=== PATIENT | male | born 1970 | race Caucasian/White ===

== ENCOUNTER 2020-02-06 16:43 | Observation (INO) | payer BC, SELFPAY ==
--- NOTE | ~2020-02-06 | XR_ITS ---
EXAMINATION: XR chest 2V EXAM DATE: 02/06/2020 18:04 INDICATION: Chest pain. History of asthma. Shortness of breath. TECHNIQUE: Frontal and lateral projections of the chest obtained and reviewed. Comparison is made to prior examination from 06/17/2016. FINDINGS: The lungs are clear. There are no pleural effusions. The cardiomediastinal silhouette is within normal limits. There is no pneumothorax suspected. The bones and soft tissues are unremarkab le. IMPRESSION: No acute cardiopulmonary findings. Reviewed, dictated and finalized at location A.
--- NOTE | 2020-02-06 16:44 | ECG_ITS ---
Measurements Intervals [place] Rate: 75 P: 44 NE: 179 QRS: 9 QRSD: 99 T: 46 QT: 366 QTc: 411 Interpretive Statements SINUS RHYTHM NORMAL ECG Electronically Signed On 02-07-2020 6:54:04 CDT by Herberth Gutiérrez D.O.
[2020-02-06 16:45] VITALS: BP 180/89; PULSE 73; RESP 17; TEMP 36.4; O2SAT 97
[2020-02-06 16:56] VITALS: PULSE 86
[2020-02-06 17:05] LABS: Basophils Absolute Auto 0.1 K/mm3 (0.0-0.1); Basophils Percent Auto 0.7 % (0.2-1.2); Eosinophils Absolute Auto 0.3 K/mm3 (0-0.3); Eosinophils Percent Auto 2.9 % (0-4.4); Hemoglobin 14.1 g/dL (14.0-18.0); Immature Granulocyte Absolute 0.05 K/mm3 (0.00-0.031); Immature Granulocyte Percent A 0.6 % (0-0.5); Lymphocytes Absolute Auto 3.02 K/mm3 (0.9-3.2); Lymphocytes Percent Auto 34.4 % (18.3-44.2); Mean Corpuscular HGB Conc 34.4 g/dl (32-36); Mean Corpuscular Hemoglobin 29.7 pg (26-34); Mean Corpuscular Volume 86.5 fl (80-100); Mean Platelet Volume 9.2 fl (7.4-10.4); Monocytes Absolute Auto 0.4 K/mm3 (0.1-0.6); Monocytes Percent Auto 4.8 % (2.6-8.5); Neutrophils Percent Auto 56.6 % (45.5-73.1); Platelet Count Result 297 k/mm3 (150-375); Red Blood Count 4.74 M/mm3 (4.6-6.20); Red Cell Distribution Width 13.2 % (11.5-14.5); White Blood Count 8.8 K/mm3 (4.5-10.0)
[2020-02-06] MEDS: ASPIRIN 81 MG CHEWABLE TABLET 324 MG PO (17:07)
[2020-02-06 17:16] LABS: Prothrombin Time 12.7 Seconds (11.1-14.7)
[2020-02-06 17:17] LABS: Blood Urea Nitrogen 11 mg/dL (9-20); Calcium 8.8 mg/dL (8.4-10.2); Carbon Dioxide 26 mmol/L (22-30); Chloride 106 mmol/L (98-107); Estimated CRCL calculation 121 ml/min; Estimated Glomerular Filt Rate > 60; Glucose 125 mg/dL (75-110); Partial Thromboplastin Time 29.2 SECONDS (22.3-36.8); Potassium 3.7 mmol/L (3.4-5.0); Sodium 140 mmol/L (137-145)
[2020-02-06 17:29] LABS: Troponin I < 0.012 ng/mL (0.000-0.034)
--- NOTE | 2020-02-06 17:40 | ED.CHESTPAIN ---
HPI - Chest Pain General Chief Complaint: Chest Pain Stated Complaint: CP AND SOB Time Seen by Provider: 02/06/20 17:11 Source: patient and family History of Present Illness HPI narrative: Patient is 49 years old white male, obese presents with headache, dizziness, shortness of breath on exertion and chest pain started 3 weeks ago. Patient used to be on blood pressure medication but stopped years ago. History of asthma, does not smoke and drinks occasionally. Patient works 10 hours a day, 6 days a week. For people of his relatives move the Adriano's house on the last few weeks. Patient reports a lot of stress lately. Currently patient IS asymptomatic. Patient denies any fever, chills, sore throat, runny nose, body aches. Patient denies exposure to COVID-19. MD complaint: chest pain Related Data Home Medications Medication Instructions Recorded Confirmed No Home Medications 02/06/20 02/06/20 Allergies Allergy/AdvReac Type Severity Reaction Status Date / Time No Known Allergies Allergy Mild Verified 02/06/20 16:53 Review of Systems Review of Systems: Narrative: CONSTITUTIONAL: Denies fever, chills, or sweats. EYES: Denies visual changes, redness, or discharge. ENT: Denies rhinorrhea, congestion, sore throat, or otalgia. CARDIOVASCULAR: Denies chest pain, palpitations, or edema. RESPIRATORY: Denies cough or dyspnea. GASTROINTESTINAL: Denies abdominal pain, nausea, vomiting, or diarrhea. GENITOURINARY: Denies dysuria or hematuria. SKIN: Denies rash or itching. MUSCULOSKELETAL: Denies back pain, joint pain, or myalgia. NEUROLOGIC: Denies headache, numbness, or weakness. PSYCHIATRIC: Denies anxiety or depression. PMFSH Social History Social History Gender identity (if verbalized by the patient): Male Exam Narrative: Exam Narrative: General appearance: Well-developed, well-nourished Skin: Normal color Head: Normocephalic, nontraumatic Eyes: Clear conjunctiva ENT: Oropharynx normal, ears normal, nose normal Neck: Supple, nontender Chest and respiratory: Airway patent, no respiratory distress, no accessory muscle use Heart: Regular rate/rhythm Abdomen: Soft, nontender, no organomegaly, quiet bowel sounds Vascular: Normal peripheral pulses, normal capillary refill. Musculoskeletal: Normal range of motion, nontender back Neurologic: Alert and oriented ?3, EMERGENCY MEDICAL DISPATCHER is normal as tested, no gross motor deficit Course Course Emergency Course: Asymptomatic, unchanged Consultations Consultation #1: Dr. Oscar: Admit to chest pain center Date: 02/06/20 Time: 19:10 Vital Signs Vital signs: Vital Signs Temperature 36.4 C L 02/06/20 16:45 Pulse Rate 73 02/06/20 16:45 Respiratory Rate 17 02/06/20 16:45 Blood Pressure 180/89 H 02/06/20 16:45 Pulse Oximetry 97 02/06/20 16:45 Temperature 36.4 C L 02/06/20 16:45 Pulse Rate 86 02/06/20 16:56 Respiratory Rate 17 02/06/20 16:45 Blood Pressure 180/89 H 02/06/20 16:45 Pulse Oximetry 97 02/06/20 16:45 MDM - Chest Pain MDM Narrative Medical decision making narrative: Patient does have risk factor for coronary artery disease, my concern is stress related symptoms versus coronary artery disease symptoms. I plan to get labs, EKG, chest x-ray. Further plan to follow Differential Diagnosis Differential diagnosis: Likely stable angina, atypical chest pain and chest pain Lab Data Result diagrams: 02/06/20 17:00 02/06/20 17:00 Labs: Lab Results 02/06/20 02/06/20 02/06/20 Range/Units 17:00 17:00 17:00 WBC 8.8 (4.5-10.0) K/mm3 RBC 4.74 (4.6-6.20) M/mm3 Hgb 14.1 (14.0-18.0
[2020-02-06 19:07] VITALS: PULSE 73
[2020-02-06] MEDS: METOPROLOL TARTRATE 50 MG TAB 25 MG PO (19:07)
[2020-02-06] MEDS: ENOXAPARIN 100 MG/ML SYRINGE SUB-Q (19:30)
[2020-02-06 20:00] VITALS: BP 152/89; PULSE 67; RESP 18; TEMP 36.9; O2SAT 99
[2020-02-06 20:10] VITALS: BMI 39.8
--- NOTE | 2020-02-06 20:10 | ADMGEN ---
This patient, Дмитрий Trejo, was admitted to [facility] Patient/family oriented to hospital policies and general routines including ID bracelet, bed and alarms, visiting hours, pain management, procedures, bathroom and other care routines, personal items, smoking policy, room service/diet, and visiting hours. Valuables list has been completed. Information on how to activate the Rapid Response Team has been discussed. Patient/Family are encouraged to report perceived risks to care and to ask questions if they do not understand what they are told or what they should do.
[2020-02-06 21:39] LABS: Troponin I < 0.012 ng/mL (0.000-0.034)
[2020-02-06 22:00] VITALS: PULSE 67
[2020-02-06 22:18] VITALS: PULSE 67; RESP 18; O2SAT 99
[2020-02-06 23:46] LABS: Troponin I < 0.012 ng/mL (0.000-0.034)
[2020-02-07] VITALS (8 sets, daily range): BP systolic 121–133; BP diastolic 62–78; PULSE 57–112; RESP 14–18; TEMP 36.6–37; O2SAT 98–99
--- NOTE | 2020-02-07 | EST_ITS ---
Patient Info Name: Дмитрий Trejo Age: 49 years : 1970 Gender: Male Ht: 64 in Wt: 232 lbs BSA: 2.23 m2 Exam Date: 02/07/2020 9:40 AM [facility] Patient Status: Inpatient Admit Date: 02/06/2020 Staff Ordering Physician: Grady Monteiro MD Aeronautical Engineering Officer: Jose Manuel Gomez RDCS Attending Provider: ZAIRA JONES Referring Physician: Thania SUNG; Exercise Technologist: Bhavya Ham RDCS Nurse: Zaira Mendoza, [facility] Exam Type: CA stress echo Study Info Indications R07.89 - Other chest pain Treadmill exercise stress echocardiogram is performed. Summary 1. Normal augmentation of all wall segments without evidence of ischemia with stress. 2. Normal left venticular systolic function with no regional wall motion abnormalities noted at rest. 3. Normal sinus rhythm - normal ECG. 4. No abnormal ST/T wave changes with exercise. 5. Negative stress echo at 86 % APMHR. Stress Echo Findings Left Ventricle Normal left venticular systolic function with no regional wall motion abnormalities noted at rest. Normal augmentation of all wall segments without evidence of ischemia with stress. Protocol: Petr Stress ECG Details Stage: REST Duration (min): 0 min : 53 sec Speed (mph): 0.0 Grade (%): 0 HR (bpm): 61 SBP (mmHg): 123 DBP (mmHg): 67 METS: --- Stage: REST Duration (min): 3 min : 59 sec Speed (mph): 0.0 Grade (%): 0 HR (bpm): 51 SBP (mmHg): 123 DBP (mmHg): 67 METS: --- Stage: REST Duration (min): 11 min : 49 sec Speed (mph): 0.0 Grade (%): 0 HR (bpm): 74 SBP (mmHg): 123 DBP (mmHg): 67 METS: --- Stage: STAGE 1 Duration (min): 1 min : 0 sec Speed (mph): 1.7 Grade (%): 10 HR (bpm): 90 SBP (mmHg): 123 DBP (mmHg): 67 METS: --- Stage: STAGE 1 Duration (min): 2 min : 0 sec Speed (mph): 1.7 Grade (%): 10 HR (bpm): 100 SBP (mmHg): 123 DBP (mmHg): 67 METS: --- Stage: STAGE 1 Duration (min): 3 min : 0 sec Speed (mph): 1.7 Grade (%): 10 HR (bpm): 102 SBP (mmHg): 143 DBP (mmHg): 67 METS: --- Stage: STAGE 2 Duration (min): 1 min : 0 sec Speed (mph): 2.5 Grade (%): 12 HR (bpm): 110 SBP (mmHg): 143 DBP (mmHg): 67 METS: --- Stage: STAGE 2 Duration (min): 2 min : 0 sec Speed (mph): 2.5 Grade (%): 12 HR (bpm): 115 SBP (mmHg): 162 DBP (mmHg): 69 METS: --- Stage: STAGE 2 Duration (min): 3 min : 0 sec Speed (mph): 2.5 Grade (%): 12 HR (bpm): 121 SBP (mmHg): 162 DBP (mmHg): 69 METS: --- Stage: STAGE 3 Duration (min): 1 min : 0 sec Speed (mph): 3.4 Grade (%): 14 HR (bpm): 135 SBP (mmHg): 195 DBP (mmHg): 91 METS: --- Stage: STAGE 3 Duration (min): 1 min : 35 sec Speed (mph): 3.4 Grade (%): 14 HR (bpm): 148 SBP (mmHg): 195 DBP (mmHg): 91 METS: ---
--- NOTE | 2020-02-07 06:00 | ECG_ITS ---
Measurements Intervals [place] Rate: 60 P: 51 MD: 193 QRS: 0 QRSD: 98 T: 46 QT: 397 QTc: 397 Interpretive Statements SINUS RHYTHM NORMAL ECG Electronically Signed On 02-07-2020 11:38:17 CDT by Herberth Gutiérrez D.O.
[2020-02-07] MEDS: ACETAMINOPHEN 500 MG TABLET 1000 MG PO ×2 (06:59→13:36)
[2020-02-07] MEDS: ASPIRIN 81 MG CHEWABLE TABLET PO (08:28)
--- NOTE | 2020-02-07 09:24 | PM.IMHP ---
H&P: HPI History of Present Illness Chief complaint: CP, Anxiety Narrative: Дмитрий Trejo is a 49 year old male without previous history of known heart disease who presents with a history of chest pain after being seen in the emergency room last evening. The patient says that he has been having intermittent episodes of odd since shins and is the described 3 or 4 weeks ago. The symptoms were nonexertional and not associated with any other symptomatology. He was not particularly concerned about any of this until the last week or so when he started also have some chest pain. He describes episodes of a dull central chest pain which is sometimes left to the precordium. This a call so occurs in a unpredictable fashion in the sense that it occurs both with and without exertion. He has had a couple of episodes that occurred with stair climbing and another episode with carrying a bag of dog food from his car into the house. Because of these symptoms he came to the emergency room last evening. His 12 lead ECG looks relatively benign his biomarkers are normal x3 sets. He is comfortable in room 211 and has no other symptoms or complaints. Past medical history is remarkable for a previous history of hernia surgery. Otherwise he denies symptoms of palpitations syncope orthopnea PND or edema. 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 Review of Systems Constitutional: Constitutional: Reports no additional constitutional complaints Eyes: Eyes: Reports no additional eye complaints ENT: Reports system reviewed and no additional complaints, except as documented Cardiovascular: Cardiovascular: Reports as per HPI Respiratory: Respiratory: Reports as per HPI Gastrointestinal: Gastrointestinal: Reports no additional gastrointestinal complaints Genitourinary: Genitourinary: Reports no additional male genitourinary complaints Musculoskeletal: Musculoskeletal: Reports no additional musculoskeletal complaints Integumentary/Breasts: Skin/Breast: Reports system reviewed and no additional complaints, except as docu Neurologic: Reports system reviewed and no additional complaints, except as documented Psychiatric: Psychiatric: Reports no additional psychiatric complaints [facility] Social History Social History Smoking status: Former smoker Alcohol intake: current Drinks per week: 6 Gender identity (if verbalized by the patient): Male Spiritual care concerns: No Meds Home Medications and Allergies Home Medications Medication Instructions Recorded Confirmed Type albuterol sulfate 2 puff INHALATION QID PRN 02/06/20 02/06/20 History Allergies Allergy/AdvReac Type Severity Reaction Status Date / Time No Known Allergies Allergy Mild Verified 02/06/20 16:53 Vital Signs Vital Signs - 24 hr 02/06/20 16:45 02/06/20 16:56 02/06/20 19:07 Temperature 36.4 C L Pulse Rate 73 86 73 Respiratory Rate 17 Blood Pressure 180/89 H Pulse Oximetry 97 02/06/20 20:00 02/06/20 22:00 02/06/20 22:18 Temperature 36.9 C Pulse Rate 67 67 67 Respiratory Rate 18 18 Blood Pressure 152/89 H Pulse Oximetry 99 99 02/07/20 00:00 02/07/20 02:00 02/07/20 04:00 Temperature 36.9 C 37.0 C Pulse Rate 64 62 112 H Respiratory Rate 18 18 Blood Pressure 122/70 123/62 Pulse Oximetry 98 99 02/07/20 06:00 02/07/20 08:00 Temperature 36.7 C Pulse Rate 61 62 Respiratory Rate 14 Blood Pressure 121/76 Pulse Oximetry 99 Exam Const: General: comfortable and no acute distress Other: Overweight white male no apparent distress HENMT: Mouth: Yes moist mucous membranes Eyes: Sclera: sclerae normal Pupils: Equal, round and reactive pupils present Neck: Neck: supple and no JVD Thyroid: thyroid normal Resp: Effort & Inspection: normal respiratory effort Auscultation: clear to auscultation bilaterally Cardio: Rate: regular rate Rhythm: regular rhyth
== END 2020-02-07 15:30 | disposition home or self-care (01) ==
LOC: ANHED 19:10 → ANHCPC 19:20 → ANHIMU 20:32
PROVIDERS: Admitting Provider Internal Medicine Cardiovascular Disease; Emergency Provider Emergency Medicine; PCP Internal Medicine Gastroenterology; Visit Provider Internal Medicine Cardiovascular Disease
DX: R07.89 Other chest pain (principal); E66.9 Obesity, unspecified; Z68.39 Body mass index [BMI] 39.0-39.9, adult; Z87.891 Personal history of nicotine dependence
CPT/HCPCS: 36415; 71046; 80048; 84484; 85025; 85610; 85730; 93005; 93351; 96372; 99285; A9270; G0378; J1650

== ENCOUNTER → 2021-07-15 12:01 | Outpatient (CLI) | payer OTHER, SELFPAY ==
--- NOTE | ~2021-07-15 | MR_ITS ---
EXAMINATION: MR pituitary wo/w con EXAM DATE: 07/15/2021 13:18 INDICATION: Abnormal pituitary function tests. Low testosterone, high prolactin. Generalized headache s. Dizziness. TECHNIQUE: Magnetic resonance imaging (MRI) of the brain/pituitary obtained without contrast. Yosefitt al T1, axial diffusion, gradient echo (T2*), T1, T2, FLAIR sequences obtained. Patient was then inje cted with 20 cc intravenous Multihance contrast. Axial and coronal postcontrast T1 weighted sequences obtained. A pituitary protocol was utilized including dynamic imaging through the pituitary gland du ring intravenous injection of contrast. There are no prior studies for comparison. FINDINGS: The pituitary gland is confined to the sella turcica. Suprasellar region normal in appear ance. The optic chiasm normal. Infundibulum is midline. No definite pituitary microadenoma identif ied. Please note small microadenomas can cause endocrine abnormalities but are not always identified by imaging even using dedicated pituitary protocol. This does exclude macroadenoma or need for surg ical management. There are no areas of restricted diffusion to suggest acute infarction. There is no acute hemorrhage seen on the T2*, a hemosiderin sensitive sequence. No intraparenchymal brain mass. The ventricles a re normal in size. There are no extra-axial collections. Flow voids are seen in the cerebral arteri es on the T2-weighted sequences consistent with their expected patency. The orbits are unremarkable. Soft tissue is unremarkable. There are no areas of abnormal enhancement on the postcontrast image s. IMPRESSION: Unremarkable brain/pituitary exam. Reviewed, dictated and finalized at location A.
[2021-07-15 12:35] LABS: Estimated Glomerular Filt Rate > 60
== END ==
PROVIDERS: Visit Provider Internal Medicine Endocrinology, Diabetes & Metabolism
DX: R94.7 Abnormal results of other endocrine function studies (principal)
CPT/HCPCS: 70553; A9577

== ENCOUNTER 2022-08-16 13:20 | Inpatient (IN) | payer OTHER, SELFPAY ==
[2022-08-16] VITALS (25 sets, daily range): BP systolic 144–209; BP diastolic 69–113; PULSE 66–102; RESP 10–24; TEMP 36.6–36.8; O2SAT 90–100; BMI 42.1
--- NOTE | ~2022-08-16 | NM_ITS ---
EXAMINATION: NM ok stress w perfusion DATE: 08/17/2022 13:31 INDICATION: Elevated troponin TECHNIQUE: Rest images were obtained following intravenous administration of 9.7 mCi Tc99m tetrofosmi n (Myoview). The patient was infused intravenously with Lexiscan (Regadenoson). Then, 30.5 mCi Tc99m tetrofosmin (Myoview) was administered intravenously, and stress images were obtained. Data was recon structed into short axis and horizontal and vertical long axis SPECT images. Gated SPECT images were also obtained. COMPARISON: None. FINDINGS: There is no definite reversible or fixed perfusion abnormality to suggest ischemia or infar ction. There is normal left ventricular chamber size, wall motion and ejection fraction. Left ventr icular ejection fraction measures 58%. IMPRESSION: 1. Normal myocardial perfusion at rest and during stress. 2. Left ventricular ejection fraction measuring 58%. Reviewed, dictated and finalized at location A. PATIAL IMAGE ANALYST
--- NOTE | ~2022-08-16 | CT_ITS ---
EXAMINATION: CT brain wo con DATE: 08/16/2022 16:08 INDICATION: headache . TECHNIQUE: Computed tomography (CT) of the head was performed without intravenous contrast. The mA wa s adjusted according to patient size. Iterative reconstruction technique was employed. The dose-lengt h product was 605.33 mGy-cm. COMPARISON: None FINDINGS: No acute intracranial hemorrhage or extra-axial fluid collection. No hydrocephalus, mass, or herniation. No acute ischemic infarct. Unremarkable dural venous sinus attenuation. No acute osseous abnormality. Dependent aerated secretions and fluid in the bilateral maxillary sinuses, the remaining aerated spac es are clear. IMPRESSION: No acute intracranial process. Possible acute bilateral maxillary sinusitis. Reviewed, dictated and finalized at location K. DREN'S ZOO CARETAKER
--- NOTE | ~2022-08-16 | XR_ITS ---
EXAMINATION: XR chest 2V 08/16/2022 14:15 INDICATION: Chest pain PROCEDURE: PA and lateral views of the chest COMPARISON: Comparison to multiple prior studies sequentially, with oldest reviewed study dated 11/02. FINDINGS: The lungs are clear. The cardiomediastinal silhouette is within normal limits. There are no pleural effusions. There is no pneumothorax suspected. IMPRESSION: 1: NO ACUTE CARDIOPULMONARY DISEASE. Reviewed, dictated and finalized at location A. ARY ACQUISITIONS TECHNICIAN
--- NOTE | 2022-08-16 14:05 | ECG_ITS ---
Measurements Intervals [place] Rate: 73 P: 61 NV: 181 QRS: -4 QRSD: 81 T: 67 QT: 319 QTc: 352 Interpretive Statements SINUS RHYTHM WITH SINUS ARRHYTHMIA BASELINE ARTIFACT PRESENT COMPARED TO ECG 02/07/2020 11:13:14 SINUS ARRHYTHMIA NOW PRESENT Electronically Signed On 08-17-2022 11:11:06 FINANCIAL SPECIALIST by Karla Andersen M.D.
--- NOTE | 2022-08-16 14:06 | ED.GENADULT ---
HPI - General Adult General Chief complaint: Recheck/Abnormal Lab/Rx Stated complaint: high bp Time Seen by Provider: 08/16/22 13:36 History of Present Illness HPI narrative: 52-year-old male presenting to the emergency department for evaluation of hypertension. Patient does take hydrochlorothiazide for his hypertension. Patient states that his blood pressure last night was running 190/117. Upon arrival to the emergency department his pressure was improved at 170/86. Patient does state of the last few days he has had increased headache and did have some blurred vision yesterday. Patient states he is also had some intermittent left-sided chest pain that does radiate to his left jaw. Patient reports he did have an issue with hypertension during January 2022 and was admitted for a stress test and cardiac rule out. Patient states he does not want to stay for cardiac rule out at this time. Patient is willing to stay for treatment and a delta troponin. Patient takes hydrochlorothiazide, atorvastatin, albuterol and testosterone. Related Data Home Medications Medication Instructions Recorded Confirmed albuterol sulfate 90 mcg/actuation 2 puff inhalation QID PRN 02/06/20 08/16/22 aerosol inhaler Shortness Of Breath atorvastatin 20 mg tablet 20 mg PO DAILY 08/16/22 08/16/22 hydrochlorothiazide 12.5 mg PO DAILY 08/16/22 08/16/22 testosterone 0.5 ml topical DAILY 08/16/22 08/16/22 Allergies Allergy/AdvReac Type Severity Reaction Status Date / Time No Known Allergies Allergy Mild Verified 02/06/20 16:53 Review of Systems Review of Systems: CONSTITUTIONAL: Denies fever, chills, or sweats. EYES: Denies visual changes, redness, or discharge. ENT: Denies rhinorrhea, congestion, sore throat, or otalgia. CARDIOVASCULAR: See HPI RESPIRATORY: Denies cough or dyspnea. GASTROINTESTINAL: Denies abdominal pain, nausea, vomiting, or diarrhea. GENITOURINARY: Denies dysuria or hematuria. SKIN: Denies rash or itching. MUSCULOSKELETAL: Denies back pain, joint pain, or myalgia. NEUROLOGIC: Reports headache but denies any associated numbness or weakness. [facility] Family History Family History Father Chronic obstructive pulmonary disease Emphysema lung Lung cancer Mother Chronic obstructive pulmonary disease Emphysema lung Social History Social History Smoking status: Never smoker Alcohol intake: current Drinks per week: 6 Substance use: never Lack of Transportation: No Lack of Food: Never True Current Housing: I Have Housing Concerned About Future Housing: No Difficulty Paying Gas/Electric Bills: No Difficulty Paying for Meds: No Currently Unemployed: No Education: Bachelor's Degree Difficulty w/ Childcare or Family Care: No Gender identity (if verbalized by the patient): Male Spiritual care concerns: No Exam Narrative: APPEARANCE: Well appearing, no pain, no distress, well-nourished. HEAD: normocephalic, atraumatic. EYES: PERRLA/EOMI, conjunctivae clear. NOSE: Normal no drainage NECK: Supple. No adenopathy, no masses. RESPIRATORY: Airway patent, respirations nonlabored. Clear to auscultation bilaterally, no rales, rhonchi, wheezing. CARDIOVASCULAR: Regular rate and rhythm without murmurs rubs or gallops. ABDOMINAL: Soft, nontender, nondistended, normal bowel sounds MUSCULOSKELETAL: Moves all extremities. Strength/ROM intact, No edema, No calf tenderness. NEURO: Alert. Cranial nerves II through XII intact. Grossly intact SKIN: Warm, dry. Normal Color Course Course Emergency Course: Initial concern for hypertensive urgency due to the patient having symptoms of headache and left-sided chest pain with his hypertension. Patient's chest symptoms resolved with the nitro although patient does still have a headache. Patient is EKG showed no evidence of acute STEMI. Patient's initial troponin was
[2022-08-16] MEDS: ASPIRIN 81 MG CHEWABLE TABLET 324 MG PO (14:21)
[2022-08-16] MEDS: NITROGLYCERIN SL 0.4 MG TABLET SUBLINGUAL (14:21)
[2022-08-16 14:27] LABS: Basophils Absolute Auto 0.1 K/mm3 (0.0-0.1); Basophils Percent Auto 0.4 % (0.2-1.2); Eosinophils Absolute Auto 0.3 K/mm3 (0-0.3); Eosinophils Percent Auto 2.5 % (0-4.4); Hematocrit 51.7 % (42.0-52.0); Hemoglobin 17.8 g/dL (14.0-18.0); Immature Granulocyte Absolute 0.05 K/mm3 (0.00-0.031); Immature Granulocyte Percent A 0.4 % (0-0.5); Lymphocytes Absolute Auto 3.35 K/mm3 (0.9-3.2); Mean Corpuscular HGB Conc 34.4 g/dl (32-36); Mean Corpuscular Hemoglobin 30.1 pg (26-34); Mean Corpuscular Volume 87.3 fl (80-100); Mean Platelet Volume 9.3 fl (7.4-10.4); Monocytes Absolute Auto 0.9 K/mm3 (0.1-0.6); Monocytes Percent Auto 7.8 % (2.6-8.5); Neutrophils Absolute Auto 6.6 K/mm3 (1.3-6.7); Neutrophils Percent Auto 58.9 % (45.5-73.1); Platelet Count Result 345 k/mm3 (150-375); Red Blood Count 5.92 M/mm3 (4.6-6.20); Red Cell Distribution Width 13.7 % (11.5-14.5); White Blood Count 11.2 K/mm3 (4.5-10.0)
[2022-08-16 14:39] LABS: Alanine Aminotransferase 32 U/L (6-50); Albumin Level 4.8 g/dL (3.5-5.1); Alkaline Phosphatase 51 U/L (38-126); Anion Gap 10 mmol/L (8-16); Aspartate Amino Transferase 31 U/L (17-59); Bilirubin,Total 0.7 mg/dL (0.2-1.3); Blood Urea Nitrogen 15 mg/dL (9-20); Calcium 10.7 mg/dL (8.4-10.2); Carbon Dioxide 28 mmol/L (22-30); Chloride 100 mmol/L (98-107); Estimated CRCL calculation 94 ml/min; Estimated Glomerular Filt Rate > 60; Glucose 109 mg/dL (65-110); Potassium 3.6 mmol/L (3.4-5.0); Sodium 138 mmol/L (137-145)
[2022-08-16 15:50] LABS: INR 1.1; Prothrombin Time 13.4 Seconds (11.1-14.7)
[2022-08-16] MEDS: NITROGLYCERIN OINTMENT 1 INCH DOSE TRANSDERM (15:53)
[2022-08-16] MEDS: HEPARIN SOD/D5W 100 UNITS/ML 25,000 UNITS/250 ML BAG 9 UNITS IV CONT (16:11)
[2022-08-16] MEDS: HEPARIN SODIUM 5,000 UNITS/ML VIAL 4000 UNITS IV PUSH ×2 (16:11→23:28)
[2022-08-16 16:34] LABS: SARS-CoV-2 RNA PCR Negative
--- NOTE | 2022-08-16 19:50 | ADMGEN ---
1800:This patient, Дмитрий Trejo, was admitted to IMU Room 210-01. Patient/family oriented to hospital policies and general routines including ID bracelet, bed and alarms, visiting hours, pain management, procedures, bathroom and other care routines, personal items, smoking policy, room service/diet, and visiting hours. Information on how to activate the Rapid Response Team has been discussed. Patient/Family are encouraged to report perceived risks to care and to ask questions if they do not understand what they are told or what they should do.
[2022-08-16] MEDS: METOPROLOL TARTRATE 12.5 MG TABLET PO (20:55)
[2022-08-16 22:18] LABS: Partial Thromboplastin Time 39.4 SECONDS (22.3-36.8)
[2022-08-16] MEDS: ACETAMINOPHEN 325 MG TABLET 650 MG PO (23:20)
[2022-08-17] VITALS (16 sets, daily range): BP systolic 114–164; BP diastolic 63–100; PULSE 61–91; RESP 16–20; TEMP 36.2–36.6; O2SAT 93–100
--- NOTE | 2022-08-17 | EST_ITS ---
Patient Info Name: Дмитрий Trejo Age: 52 years : 1970 Gender: Male Ht: 63 in Wt: 237 lbs BSA: 2.24 m2 HR: 69 bpm BP: 154 / 96 mmHg Heart Rhythm: Sinus Rhythm Exam Date: 08/17/2022 11:22 AM Exam Location: [facility] Stress Patient Status: Inpatient Admit Date: 08/16/2022 Staff Ordering Physician: Patricia Coulter NP Attending Provider: Luis Nunez MD Exercise Technologist: Jennifer Gasca, CT Exam Type: CA stress ok w NM Study Info Indications R07.9 - Chest pain, unspecified A regadenoson stress test was performed. Summary 1. No abnormal ST/T wave changes with Lexiscan. 2. No chest discomfort with stress test. 3. Please correlate with nuclear medicine images, reported separately. Protocol: Lexiscan Stress ECG Details Stage: REST Duration (min): 1 min : 29 sec HR (bpm): 71 SBP (mmHg): 154 DBP (mmHg): 96 Stage: REST Duration (min): 6 min : 54 sec HR (bpm): 65 SBP (mmHg): 154 DBP (mmHg): 96 Stage: STAGE 1 Duration (min): 1 min : 0 sec HR (bpm): 103 SBP (mmHg): 136 DBP (mmHg): 73 Stage: RECOVERY Duration (min): 1 min : 0 sec HR (bpm): 99 SBP (mmHg): 136 DBP (mmHg): 73 Stage: RECOVERY Duration (min): 2 min : 0 sec HR (bpm): 86 SBP (mmHg): 136 DBP (mmHg): 73 Stage: RECOVERY Duration (min): 3 min : 0 sec HR (bpm): 84 SBP (mmHg): 130 DBP (mmHg): 75 Stage: RECOVERY Duration (min): 3 min : 5 sec HR (bpm): 82 SBP (mmHg): 130 DBP (mmHg): 75 Rest HR: 65 bpm Peak HR: 108 bpm Rest Sys BP: 154 mmHg Peak Sys BP: 136 mmHg Max Pred HR: 169 bpm % Max Pred HR: 64 % Target HR: 144 bpm Max RPP: 14,688 bpm*mmHg Termination Reason: Completed protocol Cardiac Symptoms: Shortness of breath Total Time: 1 min : 0 sec Rest Siddiqi BP: 96 mmHg Peak Siddiqi BP: 73 mmHg Total Dose: 0.4 mg Resting ECG Normal sinus rhythm. Low-voltage QRS. Stress ECG No abnormal ST/T wave changes with Lexiscan. Arrhythmias None. Report Signatures
--- NOTE | 2022-08-17 | ECHO_ITS ---
Patient Info Name: Дмитрий Trejo Age: 52 years : 1970 Gender: Male Ht: 63 in Wt: 237 lbs BSA: 2.24 m2 HR: 67 bpm BP: 131 / 79 mmHg Heart Rhythm: Sinus Rhythm Technical Quality: Fair Exam Date: 08/17/2022 9:40 AM Exam Location: [facility] Pulmonary Patient Status: Inpatient Admit Date: 08/16/2022 Staff Ordering Physician: Patricia Coulter NP Nail Technician Teacher: Nancy Cisse RDCS Attending Provider: Luis Nunez MD Referring Physician: Yfn ORTIZ; Exam Type: CA echo dop color flow w con Study Info Indications R07.9 - Chest pain, unspecified Complete two-dimensional, color flow and Doppler transthoracic echocardiogram is performed with contrast to opacify the left ventricle and to improve the deliniation of the left ventricle endocardial borders. Contrast/Agitated Saline Contrast/Ag. Saline: Definity Amount: 3.00 ml Administered By: Nancy Cisse RDCS Existing IV Access: Yes IV Access Condition: patent with no signs of infiltration Summary 1. Left ventricular chamber dimension is normal. 2. Left ventricular systolic function is normal, estimated at 65-70%. 3. There is mildly increased left ventricular wall thickness. 4. The left ventricular diastolic function is normal. 5. Technically difficult study with limited views. Definity contrast enhancement administered. 6. There is no aortic valve stenosis. 7. There is no mitral valve regurgitation. 8. There is trace tricuspid valve regurgitation. 9. No pulmonary hypertension, estimated pulmonary arterial systolic pressure is 18 mmHg. Left Ventricle Left ventricular chamber dimension is normal. Left ventricular systolic function is normal, estimated at 65-70%. There is mildly increased left ventricular wall thickness. The left ventricular diastolic function is normal. Technically difficult study with limited views. Definity contrast enhancement administered. Right Ventricle Right ventricular chamber dimension is normal. Right ventricular systolic function is normal. Left Atria Left atrial chamber dimension is normal. Right Atria Right atrial chamber dimension is normal. Aortic Valve The aortic valve is not well visualized. There is no aortic valve stenosis. There is no aortic valve regurgitation. Pulmonic Valve The pulmonic valve is not well visualized. There is mild pulmonic regurgitation. Mitral Valve The mitral valve has normal leaflets. There is no mitral valve regurgitation. The mitral valve annulus is mildly calcified. Tricuspid Valve The tricuspid valve leaflets are normal. There is trace tricuspid valve regurgitation. No pulmonary hypertension, estimated pulmonary arterial systolic pressure is 18 mmHg. Pericardium/Pleural The pericardium appears not well visualized. Inferior Vena Cava Normal inferior vena cava with >50% collapse upon inspiration consistent with normal right atrial pressure, 5 mmHg. Aorta The aortic root size at the sinus of Valsalva is normal. The prox ascending aorta size is normal. Left Ventricular Outflow Tract Name Value Normal LVOT 2D LVOT Diameter 2.05 cm LVOT Doppler ------
--- NOTE | 2022-08-17 00:11 | PM.IMHP ---
H&P: HPI History of Present Illness Date/Time: 08/16/22 2300 Chief Complaint: Hypertension Narrative: This is a 52-year-old male patient with a history of hypertension. The patient was taking hydrochlorothiazide for hypertension. The patient stated that his blood pressures have been running high for several days around 190/117. The patient stated that he wanted to go to the urgent care but they stated he needed to go to the emergency. Patient's blood pressure is 170/86 when he came to the emergency room today. The patient also had a headache and some blurred vision yesterday. The patient was complaining of left shoulder pain. The patient tells me that he had a stress test 2 years ago. The patient stated that his chest was tight when he did the stress test. However he has not had any cardiac catheterization or any interventions. His white count is 11.2. His troponin is 0.160 for the baseline and 0.160 exactly the same for the 2nd set. Patient stated he is no longer having any discomfort. Cardiology has been consulted. The patient has been started on heparin drip. The patient was admitted to inpatient on 08/16/2022 Review of Systems Review of Systems: See HPI All systems reviewed & are unremarkable except as noted in HPI and below Constitutional: Constitutional: Reports as per HPI and Reports no additional constitutional complaints Eyes: Eyes: Reports as per HPI and Reports no additional eye complaints ENT: Reports system reviewed and no additional complaints, except as documented and Reports Normal hearing present Cardiovascular: Cardiovascular: Reports no additional cardiovascular complaints Respiratory: Respiratory: Reports no additional respiratory complaints and Reports no additional respiratory complaints Gastrointestinal: Gastrointestinal: Reports as per HPI and Reports no additional gastrointestinal complaints Musculoskeletal: Musculoskeletal: Reports no additional musculoskeletal complaints Integumentary/Breasts: Skin/Breast: Reports system reviewed and no additional complaints, except as docu and Reports as per HPI Neurologic: Reports system reviewed and no additional complaints, except as documented, Reports as per HPI and Reports Normal hearing present Psychiatric: Psychiatric: Reports no additional psychiatric complaints and Reports as per HPI Endocrine: Endocrine: Reports no additional endocrine complaints Hematologic/Lymphatic: Hematologic/Lymphatic: Reports no additional hematologic/lymphatic complaints Allergic/Immunologic: Allergic/Immunologic: Reports no additional allergic/immunologic complaints [facility] Past Medical History Medical History (Updated 08/17/22 @ 00:49 by Patricia Coulter NP) Asthma History of kidney stones Hyperlipidemia Hypertension Hypogonadism Surgical History Surgical History (Updated 08/17/22 @ 00:49 by Patricia Coulter NP) H/O hernia repair X2 History of tonsillectomy and adenoidectomy Family History Family History Father Chronic obstructive pulmonary disease Emphysema lung Lung cancer Mother Chronic obstructive pulmonary disease Emphysema lung Social History Social History (Updated 08/17/22 @ 00:25 by Patricia Coulter NP) Social History: The patient works for [employer]. He lives with his who is the durable power face and fill packer for healthcare. The patient has 2 children. He is a lifelong nonsmoker. He does not use any alcohol marijuana or illicit drugs. Code status full code Smoking status: Never smoker Alcohol intake: current Drinks per week: 6 Substance use: never Lack of Transportation: No Lack of Food: Never True Current Housing: I Have Housing Concerned About Future Housing: No Difficulty Paying Gas/Electric Bills: No Difficulty Paying for Meds: No Currently Unemployed: No Education: Bachelor's Degree Difficulty w/ Childcare or Family
[2022-08-17 02:32] LABS: Troponin I 0.069 ng/mL (0.000-0.034)
[2022-08-17 05:36] LABS: Basophils Absolute Auto 0.1 K/mm3 (0.0-0.1); Basophils Percent Auto 0.6 % (0.2-1.2); Eosinophils Absolute Auto 0.4 K/mm3 (0-0.3); Eosinophils Percent Auto 3.9 % (0-4.4); Hemoglobin 17.6 g/dL (14.0-18.0); Immature Granulocyte Absolute 0.04 K/mm3 (0.00-0.031); Immature Granulocyte Percent A 0.4 % (0-0.5); Lymphocytes Absolute Auto 3.37 K/mm3 (0.9-3.2); Lymphocytes Percent Auto 35.9 % (18.3-44.2); Mean Corpuscular HGB Conc 34.5 g/dl (32-36); Mean Corpuscular Hemoglobin 29.9 pg (26-34); Mean Corpuscular Volume 86.7 fl (80-100); Mean Platelet Volume 9.2 fl (7.4-10.4); Monocytes Absolute Auto 0.8 K/mm3 (0.1-0.6); Monocytes Percent Auto 8.1 % (2.6-8.5); Neutrophils Absolute Auto 4.8 K/mm3 (1.3-6.7); Neutrophils Percent Auto 51.1 % (45.5-73.1); Platelet Count Result 297 k/mm3 (150-375); Red Blood Count 5.88 M/mm3 (4.6-6.20); Red Cell Distribution Width 13.9 % (11.5-14.5); White Blood Count 9.4 K/mm3 (4.5-10.0)
[2022-08-17 05:47] LABS: Alanine Aminotransferase 29 U/L (6-50); Albumin Level 4.4 g/dL (3.5-5.1); Alkaline Phosphatase 52 U/L (38-126); Anion Gap 8 mmol/L (8-16); Aspartate Amino Transferase 29 U/L (17-59); Bilirubin,Total 0.6 mg/dL (0.2-1.3); Blood Urea Nitrogen 14 mg/dL (9-20); Calcium 8.9 mg/dL (8.4-10.2); Carbon Dioxide 28 mmol/L (22-30); Chloride 99 mmol/L (98-107); Estimated CRCL calculation 104 ml/min; Estimated Glomerular Filt Rate > 60; Glucose 107 mg/dL (65-110); Lipase 582 U/L (23-300); Magnesium 1.7 mg/dL (1.6-2.3); Partial Thromboplastin Time 55.5 SECONDS (22.3-36.8); Potassium 3.6 mmol/L (3.4-5.0); Sodium 135 mmol/L (137-145)
[2022-08-17] MEDS: HEPARIN SODIUM 5,000 UNITS/ML VIAL 3000 UNITS IV PUSH ×2 (06:23→13:43)
[2022-08-17] MEDS: PERFLUTREN LIPID MICROSPHERES 1.5 ML VIAL DILUTED TO 10 ML TOTAL VOLUME IV PUSH (09:15)
[2022-08-17] MEDS: METOPROLOL TARTRATE 12.5 MG TABLET PO ×2 (09:37→20:33)
[2022-08-17] MEDS: ATORVASTATIN 20 MG TABLET PO (09:39)
--- NOTE | 2022-08-17 09:39 | PM.CNCAR ---
Assessment and Plan Assessment and plan (1) Elevated troponin: Code(s): R77.8 - Other specified abnormalities of plasma proteins Status: Acute (2) Hypertension: Code(s): I10 - Essential (primary) hypertension Status: Acute (3) Acute non-ST elevation myocardial infarction (NSTEMI): Code(s): I21.4 - Non-ST elevation (NSTEMI) myocardial infarction Status: Acute Plan Troponins are minimally elevated but have been flat. In the setting of hypertensive emergency with other symptoms of headache and blurred vision. Now asymptomatic with improved blood pressure. EKGs show LVH with secondary repolarization changes, no ischemic changes. TTE and Lexiscan have been ordered. Will follow up on the results. Will increase HCTZ and add Lisinopril for better blood pressure control. Patient will need a primary care provider for outpatient follow-up on hypertension (he currently does not have a PCP). History of Present Illness History of Present Illness Consult date/time: 08/17/22 09:39 Requesting physician: Richard Mckeon MD Consult reason: hypertension and Other (Elevated troponin) Reason For Visit: NSTEMI, hypertensive urgency Narrative: We are being consulted for elevated troponin. This is a 52-year-old gentleman with a history of hypertension who presented with headache, blurred vision and left shoulder pain. Patient reports that he is supposed to be taking HCTZ for his hypertension but has not taken it for several months. Last saw his PCP in October (he fired his PCP because he did not like him). Patient reports that for the past few days, he has noticed his blood pressure to be significantly high at home, up to the 190s systolics. He had restarted his HCTZ around Wednesday. His blood pressure on presentation was as high as 209/104. EKG shows sinus rhythm, LVH with secondary repolarization changes, no ischemic changes. Troponins were mildly elevated and flat: 0.160 --> 0.160 --> 0.069. Patient reports that his left shoulder pain felt like twinges. Started yesterday morning and lasted all day. Currently resovled. No chest pain. No shortness of breath. A TTE and Lexiscan have already been ordered by hospitalist. Review of Systems Review of Systems: 12-point ROS obtained. Negative, unless stated in HPI. [facility] Past Medical History Medical History Asthma History of kidney stones Hyperlipidemia Hypertension Hypogonadism Surgical History Surgical History H/O hernia repair X2 History of tonsillectomy and adenoidectomy Family History Family History Father Chronic obstructive pulmonary disease Emphysema lung Lung cancer Mother Chronic obstructive pulmonary disease Emphysema lung Social History Social History Social History: The patient works for [email or web address]. He lives with his who is the durable power collections attorney for healthcare. The patient has 2 children. He is a lifelong nonsmoker. He does not use any alcohol marijuana or illicit drugs. Code status full code Smoking status: Never smoker Alcohol intake: current Drinks per week: 6 Substance use: never Lack of Transportation: No Lack of Food: Never True Current Housing: I Have Housing Concerned About Future Housing: No Difficulty Paying Gas/Electric Bills: No Difficulty Paying for Meds: No Currently Unemployed: No Education: Bachelor's Degree Difficulty w/ Childcare or Family Care: No Gender identity (if verbalized by the patient): Male Spiritual care concerns: No Meds Home Medications and Allergies Home Medications Medication Instructions Recorded Confirmed Type albuterol sulfate 90 mcg/actuation 2 puff inhalation QID PRN 02/06/20 08/16/22 History aerosol inhal
[2022-08-17] MEDS: ACETAMINOPHEN 325 MG TABLET 650 MG PO ×2 (09:44→18:07)
--- NOTE | 2022-08-17 11:32 | IVDEFINITY ---
Prior to administration of IV Definity the patient was educated on the risks and benefits of the imaging enhancing agent including potential adverse side effects. The patient verbalized understanding. Allergies were verified. No exclusion criteria were identified and at least one of the following inclusion criteria were met: 1) physician request, 2) patient technically difficult to image (per the [place] [employer]ocardi[employer] guidelines of two or more segments not discernable within the apical view), or 3) questionable left ventricular function. ?
[2022-08-17 12:59] LABS: Partial Thromboplastin Time 57.3 SECONDS (22.3-36.8)
[2022-08-17] MEDS: lisinopriL 20 MG TABLET PO (13:47)
[2022-08-17] MEDS: hydroCHLOROthiazide 25 MG TABLET PO (13:47)
[2022-08-17] MEDS: HEPARIN SOD/D5W 100 UNITS/ML 25,000 UNITS/250 ML BAG 16 UNITS IV CONT (15:17)
[2022-08-17] MEDS: hydrALAZINE HCL 20 MG/ML VIAL 10 MG IV PUSH (18:05)
[2022-08-18] VITALS (7 sets, daily range): BP systolic 136–140; BP diastolic 75–90; PULSE 63–79; RESP 14–20; TEMP 36.4–36.9; O2SAT 97–100
[2022-08-18 09:16] LABS: Hematocrit 47.9 % (42.0-52.0); Hemoglobin 16.6 g/dL (14.0-18.0); Mean Corpuscular HGB Conc 34.7 g/dl (32-36); Mean Corpuscular Hemoglobin 29.4 pg (26-34); Mean Corpuscular Volume 84.9 fl (80-100); Platelet Count Result 303 k/mm3 (150-375); Red Blood Count 5.64 M/mm3 (4.6-6.20); Red Cell Distribution Width 13.7 % (11.5-14.5)
[2022-08-18 09:30] LABS: Anion Gap 6 mmol/L (8-16); Blood Urea Nitrogen 14 mg/dL (9-20); Calcium 8.8 mg/dL (8.4-10.2); Carbon Dioxide 29 mmol/L (22-30); Chloride 98 mmol/L (98-107); Estimated CRCL calculation 104 ml/min; Estimated Glomerular Filt Rate > 60; Glucose 129 mg/dL (65-110); Potassium 3.6 mmol/L (3.4-5.0); Sodium 133 mmol/L (137-145)
[2022-08-18] MEDS: METOPROLOL TARTRATE 12.5 MG TABLET PO (09:49)
[2022-08-18] MEDS: lisinopriL 20 MG TABLET PO (09:50)
[2022-08-18] MEDS: hydroCHLOROthiazide 25 MG TABLET PO (09:50)
[2022-08-18] MEDS: ATORVASTATIN 20 MG TABLET PO (09:50)
[2022-08-18] MEDS: ACETAMINOPHEN 325 MG TABLET 650 MG PO (09:52)
--- NOTE | 2022-08-18 09:53 | PM.PNCARD ---
Progress Note: A&P Assessment and Plan (1) Elevated troponin: Code(s): R77.8 - Other specified abnormalities of plasma proteins Status: Acute (2) Hyperlipidemia: Code(s): E78.5 - Hyperlipidemia, unspecified Status: Acute (3) Hypertension: Code(s): I10 - Essential (primary) hypertension Status: Acute (4) Hypertensive urgency: Code(s): I16.0 - Hypertensive urgency Status: Acute Plan Troponins are minimally elevated but have been flat. In the setting of hypertensive emergency with other symptoms of headache and blurred vision. Now asymptomatic with improved blood pressure. EKGs show LVH with secondary repolarization changes, no ischemic changes. TTE showed LVEF 65-70%, mildly increased left ventricular wall thickness, no significant valvular disease. Lexiscan negative for ishcemia or infarction. Blood pressure better now with increased dose of HCTZ and Lisinopril. Continue with meds. Patient will need a primary care provider for outpatient follow-up on hypertension (he currently does not have a PCP). No other inpatient cardiac evaluation needed at this time. Can discharge home from a cardiac standpoint. Subjective Date/time seen: 08/18/22 09:53 Interval history: Reason for visit: Elevated troponins, hypertensive urgency Patient feeling well this AM. No cardiac symptoms. Blood pressure controlled this AM. Review of Systems Review of Systems: 8-point ROS obtained. Negative, unless stated in HPI. Exam Const: General: comfortable and no acute distress HENMT: Mouth: Yes moist mucous membranes Eyes: General: appearance normal, both eyes and all related structures Sclera: sclerae normal Neck: Neck: supple Resp: Effort & Inspection: normal respiratory effort Auscultation: clear to auscultation bilaterally Cardio: Rate: regular rate Rhythm: regular rhythm Heart sounds: no murmurs Skin: General skin exam: normal color Neuro: Speech: normal speech Extrem: General: normal to inspection Psych: Mental Status: mental status grossly normal Affect: normal affect Objective Data Vital Signs Vital Signs: Vital Signs - 24 hr 08/17/22 12:00 08/17/22 12:30 08/17/22 15:05 Temperature 36.2 C L Pulse Rate 62 Respiratory Rate 18 Blood Pressure 162/89 H Pulse Oximetry 97 97 Oxygen Delivery Room Air Room Air 08/17/22 12:00 08/17/22 14:00 08/17/22 16:00 Temperature Pulse Rate 65 67 Respiratory Rate Blood Pressure Pulse Oximetry Oxygen Delivery Room Air 08/17/22 16:00 08/17/22 16:00 08/17/22 18:00 Temperature 36.3 C L Pulse Rate 71 67 72 Respiratory Rate 18 Blood Pressure 142/100 H Pulse Oximetry 93 Oxygen Delivery 08/17/22 20:00 08/17/22 20:33 08/17/22 20:00 Temperature 36.3 C L Pulse Rate 68 91 91 Respiratory Rate 20 20 Blood Pressure 141/72 H Pulse Oximetry 98 98 Oxygen Delivery Room Air 08/17/22 20:00 08/17/22 22:00 08/17/22 23:31 Temperature 36.6 C Pulse Rate 67 74 71 Respiratory Rate 20 Blood Pressure 114/63 Pulse Oximetry 100 Oxygen Delivery 08/18/22 00:00 08/18/22 00:00 08/18/22 04:00 Temperature 36.4 C L Pulse Rate 69 69 64 Respiratory Rate 20 20 Blood Pressure 140/90 Pulse Oximetry 100 100 Oxygen Delivery Room Air 08/18/22 02:00 08/18/22 04:00 08/18/22 04:00 Temperature Pulse Rate 63 79 79 Respiratory Rate 20 Blood Pressure Pulse Oximetry 100 Oxygen Delivery Room Air 08/18/22 06:00 08/18/22 08:00 08/18/22 08:00 Temperature 36.9 C Pulse Rate 63 64 69 Respiratory Rate 14 Blood Pressure 136/75 Pulse Oximetry 97 Oxygen Delivery 08/18/22 09:49 Temperature Pulse Rate 67 Respiratory Rate Blood Pressure Pulse Oximetry Oxygen Delivery Intake/Output Intake/Output: Intake & Output 08/15/22 08/16/22 08/17/22 08/18/22 23:59 23:59 23:59 23:59 Intake Total 100 820 800 Output Total 400 700 Ba
--- NOTE | 2022-08-18 10:26 | PM.DS ---
DS: Admitting Diagnosis Discharge Date August 18, 2022 Admitting Diagnosis Chest pain DS: Discharge Diagnosis Discharge Diagnosis (1) Elevated troponin: Code(s): R77.8 - Other specified abnormalities of plasma proteins Status: Acute Assessment and Plan: -the patient is baseline troponin is 0.160 and the 2nd set was exactly the same. -patient was pointing to his left shoulder and stated that he had left shoulder pain and has been diaphoretic today. -the patient is currently on a heparin drip -cardiology has been consulted. -the patient stated that he had a stress test 2 years ago and was negative. -continue to trend troponins. -troponins could possibly be elevated due to the hypertensive urgency. (2) Hypertension: Code(s): I10 - Essential (primary) hypertension Status: Acute Assessment and Plan: The patient states that his blood pressure has been elevated for several days and he has not missed any of his medications. The patient stated that he only takes hydrochlorothiazide. The patient was given aspirin nitro and Lopressor in the emergency room. -I do p.r.n. hydralazine tonight and possibly start him on metoprolol tomorrow cardiology is okay with that. (3) Hyperlipidemia: Code(s): E78.5 - Hyperlipidemia, unspecified Status: Acute Assessment and Plan: -check lipid profile. Continue with atorvastatin (4) Asthma: Code(s): J45.909 - Unspecified asthma, uncomplicated Status: Acute Assessment and Plan: -continue with albuterol inhaler p.r.n.. (5) Chest pain: Code(s): R07.9 - Chest pain, unspecified Status: Acute Assessment and Plan: -an echo has been ordered for tomorrow. -Lexiscan has been ordered for the patient as well. (6) Hypogonadism: Status: Acute Assessment and Plan: -the patient just recently started taking testosterone injections. The injections are non formulary. DS: Summary Hospital Course Hospital Course: Patien admitted for chest pain. Negative workup negative stress test. Likely related to high blood pressure. New medications include lisinopril metoprolol on discharge. Blood pressure is much better controlled. Patient will need to follow up with his primary care physician. Time Spent with Patient Time attestation: Total time spent providing and/or coordinating discharge services: Exam Const: General: cooperative, healthy appearing, comfortable, no acute distress, well developed, alert, awake, Physically active, average body habitus and well nourished Nutritional Appearance: average body habitus and well nourished Orientation/consciousness: oriented to person, oriented to place, oriented to time and patient oriented x3 Limitations: no limitations HENMT: Head: normal to inspection, No palpable skull fracture present, normocephalic, atraumatic and abrasion Ears: hearing grossly normal bilaterally and external ears normal Face/Nose/Sinus: Normal external nose present and Normal nares present Eyes: General: appearance normal, both eyes and all related structures Alignment and Position: alignment normal Periorbital: periorbital findings normal Eyelids: eyelids normal Sclera: sclerae normal Pupils: Equal, round and reactive pupils present EOM: EOMs intact bilaterally Neck: Neck: normal visual inspection, full ROM, no lymphadenopathy, trachea midline and supple Chest: Chest palpation & inspection: normal inspection of the chest Resp: Effort & Inspection: normal respiratory effort Auscultation: clear to auscultation bilaterally Cardio: Palpation: normal PMI Rate: regular rate Rhythm: regular rhythm Heart sounds: S1 normal heart sound present and S2 normal heart sound present Peripheral pulses: Peripheral pulses 2+ throughout GI: Inspection: normal to inspection Auscultation: normal bowel sounds Rectal Exam: deferred Back/Spine/Pelvis: Cervical Spine: cervical ROM normal Skin: General
== END 2022-08-18 11:17 | disposition home or self-care (01) | DRG 305 ==
LOC: ANHED 13:41 → ANHIMU 17:21
PROVIDERS: Internal Medicine Cardiovascular Disease; Nurse Practitioner; Admitting Provider Internal Medicine; Emergency Provider Emergency Medicine; Visit Provider Chiropractor
DX: I16.0 Hypertensive urgency (principal); R07.9 Chest pain, unspecified; R77.8 Other specified abnormalities of plasma proteins; Z20.822 Contact with and (suspected) exposure to COVID-19; E78.5 Hyperlipidemia, unspecified; J45.909 Unspecified asthma, uncomplicated; E29.1 Testicular hypofunction; Z87.442 Personal history of urinary calculi
CPT/HCPCS: 36415; 70450; 71046; 78452; 80048; 80053; 83690; 83735; 84443; 84484; 85025; 85027; 85610; 85730; 93005; 93017; 99291; A9270; A9502; C8929; J0131; J0360; J1644; J2785; Q9957; U0003; U0005

== ENCOUNTER 2022-10-26 07:24 | Outpatient (CLI) | payer OTHER, SELFPAY ==
--- NOTE | ~2022-10-26 | MR_ITS ---
EXAMINATION: MR pituitary wo/w con DATE: 10/26/2022 08:42 INDICATION: Hyperprolactinemia. TECHNIQUE: Magnetic resonance imaging (MRI) of the brain and brainstem was performed without and with 20 mL MultiHance intravenous contrast. COMPARISON: Brain MRI 07/15/2021, head CT 08/16/2022 FINDINGS: The pituitary is normal in size with height of 6 mm and concave superior margin. The infund ibulum is at the midline. There is no intracranial hemorrhage, acute infarction, or abnormal intracra nial mass lesion. The ventricles are normal in size. There is mild mucosal thickening in the paranasa l sinuses. The orbits are normal. The mastoid air cells are normal. IMPRESSION: 1. Normal brain. Normal pituitary. Reviewed, dictated and finalized at location A. CUSTODIAN
== END 2022-10-26 07:25 ==
LOC: MICIMG 07:25
PROVIDERS: PCP Internal Medicine; Visit Provider Internal Medicine
DX: R79.89 Other specified abnormal findings of blood chemistry (principal)
CPT/HCPCS: 70553; A9577

== ENCOUNTER 2024-04-04 13:26 | Outpatient (CLI) | payer OTHER, SELFPAY ==
--- NOTE | 2024-04-04 14:15 | NEURO_ITS ---
Impression: # Complains of numbness of lower extremities. 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 # Needle/EMG exam mildly neurogenic. # Clinical correlation recommended. Nerve Conduction Studies Anti Sensory Summary Table Stim Site NR Peak (ms) P-T Amp (?V) Site1 Site2 Delta-P (ms) Dist (cm) Jay (m/s) Left Sup Fibular Anti Sensory (Ant Lat Mall) 14 cm 3.9 5.6 14 cm Ant Lat Mall 3.9 16.0 41 Right Sup Fibular Anti Sensory (Ant Lat Mall) NO RESPONSE 14 cm NR 14 cm Ant Lat Mall 16.0 Left Sural Anti Sensory (Lat Mall) Calf 4.3 19.1 Calf Lat Mall 4.3 16.0 37 Right Sural Anti Sensory (Lat Mall) NO RESPONSE Calf NR Calf Lat Mall 16.0 Motor Summary Table Stim Site NR Onset (ms) O-P Amp (mV) Site1 Site2 Delta-0 (ms) Dist (cm) Jay (m/s) Left Peroneal Motor (Vastus Med) Ankle 4.1 3.2 Popit Ankle 8.9 40.0 45 Popit 13.0 1.8 Right Peroneal Motor (Vastus Med) Ankle 3.8 1.2 Popit Ankle 9.1 39.0 43 Popit 12.9 2.1 Left Tibial Motor (Abd Martinez Brev) Ankle 4.0 2.4 Knee Ankle 9.8 40.0 41 Knee 13.8 0.3 Right Tibial Motor (Abd Martinez Brev) Ankle 4.1 3.1 Knee Ankle 9.3 40.0 43 Knee 13.4 2.1 F Wave Studies NR F-Lat (ms) L-R F-Lat (ms) Left Peroneal (Mrkrs) (EDB) 50.21 1.46 Right Peroneal (Mrkrs) (EDB) 48.75 1.46 Left Tibial (Mrkrs) (Abd Hallucis) 47.83 0.48 Right Tibial (Mrkrs) (Abd Hallucis) 48.31 0.48 EMG Side Muscle Nerve Root Ins Act Fibs Amp Dur Recrt Comment Right AntTibialis Dp Br Fibular L4-5 Nml Nml Nml Nml Nml Right Gastroc Tibial S1-2 Nml Nml Nml Nml Nml Right Fibularis Long Sup Br Fibular L5-S1 Nml Nml Nml Nml Nml Right Flex Dig Long Tibial L5-S2 Nml Nml Nml Nml Nml Right Ext Dig Brev Dp Br Fibular L5, S1 Nml Nml Nml Nml Nml Right QuadratusFem QuadFemoris L4-5, S1 Nml Nml Nml Nml Nml Left AntTibialis Dp Br Fibular L4-5 Nml Nml Nml Nml Nml Left Gastroc Tibial S1-2 Nml Nml Nml >12ms +1 Left Fibularis Long Sup Br Fibular L5-S1 Nml Nml Nml Nml Nml Left Flex Dig Long Tibial L5-S2 Nml Nml Nml >12ms +1 Left Ext Dig Brev Dp Br Fibular L5, S1 Nml Nml Nml Nml Nml Left QuadratusFem QuadFemoris L4-5, S1 Nml Nml Nml Nml Nml MTDD
== END 2024-04-04 13:27 | disposition home or self-care (01) ==
LOC: ANHNEURO 13:30
PROVIDERS: PCP Internal Medicine; Visit Provider Internal Medicine
DX: G57.93 Unspecified mononeuropathy of bilateral lower limbs (principal)
CPT/HCPCS: 95886; 95910

== ENCOUNTER 2025-01-11 08:57 | Outpatient (CLI) | payer OTHER, SELFPAY ==
--- OUTSIDE RECORDS SUMMARY | 2025-01-11 09:13 | XMS_ITS | Encounter Summary ---
Author Organization [facility] Address [address] [facility] [address] Care Team Providers Care Neurosurgical Nurse Practitioner Name Role Phone Nikko Hebert DO Primary Care Provider [phone] Reason for Visit * Reason Onset Date Comments Follow-up 06/15/2024 Spk to shari Choe he has not been able to speak to any one in pain management to get an appointment. He did stated he left a few messages and hasn't received a return call and feels as if he is getting the run around. He is looking to see if Dr Longo is able to refer him to a different facility. He has an upcoming appointment 06/28/2024. Please reach out to pt for further assistance. Encounter Details Date Type Department Care Team (Late st Contact Info) Description 06/15/2024 Telephone [facility] - Centralized Scheduling [address] [place] [address] Oc Longo MD [address] [place] [address] Follow-up (Spk to Дмитрий, stated he has not been able to speak to any one in pain management to get an appointment. He did stated he left a few messages and hasn't received a return call and feels as if he is getting the run around. He is looking to see if Dr Longo is able to refer him to a different facility. He has an upcoming appointment 06/28/2024. Please reach out to pt for further assistance.) Social History Tobacco Use Types Packs/Day Years Used Date Smoking Tobacco: Former Cigarettes Smokeless Tobacco: Never Alcohol Use Standard Drinks/Week Comments Yes 0 (1 standard drink = 0.6 oz pur e alcohol) PHQ-2 Answer Date Recorded Patient Health Questionnaire-2 Score 1 04/25/2024 Sex and Gender Information Value Date Recorded Sex Assigned at Not on file Legal Sex Male 3:40 PM CDT Gender Identity Not on file Sexual Orientation Not on file documented as of this encounter Miscellaneous Notes * Telephone Encounter - Zak Reynoso - 06/15/2024 10:19 AM CDT Spk to Дмитрий, stated he has not been able to speak to any one in pain management to get an appointment. He did stated he left a few messages and hasn't received a return call and feels as if he is getting the run around. He is looking to see if Dr Longo is able to refer him to a different facility.He has an upcoming appointment 06/28/2024. Please reach out to pt for further assistance. documented in this encounter Plan of Treatment Not on file documented as of this encounter Visit Diagnoses Not on filedocumented in this encounter Care Teams Neurosurgical Nurse Practitioner Relationship Specialty Start Date End Date Nikko Hebert DO [address] [place] [address] PCP - General Internal Medicine 04/19/24 documented as of this encounter
--- OUTSIDE RECORDS SUMMARY | 2025-01-11 09:13 | XMS_ITS | Data Portability ---
Author Organization [facility] Address [address] [place] [address] Assessment No assessment recorded. Plan of Treatment Reminders Order Date Submit Date Provider Last Modified By Organization Details Last Modified Time Details Appointments None recorded. Lab HbA1c (hemoglobi n A1c), blood [address], Kamari Lynne, [address], [place], [address], 17:07:32 testostero ne, free + total, serum 2020 021 NISHANT LABRADHIKA, Kamari Lynne, [address], [place], [address], 17:07:31 CMP, serum or plasma 2020 021 NISHANT LABRADHIKA, Kamari Lynne, [address], [place], [address], 17:07:29 CBC 2020 021 NISHANT LABRADHIKA, Kamari Lynne, [address], [place], [address], 17:07:30 lipid panel, serum 2020 021 NISHANT LABRADHIKA, Kamari Lynne, [address], [place], [address], 1 17:07:30 Referral None recorded. Procedures None recorded. Surgeries None recorded. Imaging None recorded. Medication Orders testostero ne 1.62 % (20.25 mg/1.25 gram) transderma l gel packet 2021 022 [email or web address] [facility] [address], [address], 2 16:33:47 Xyosted 75 mg/0.5 mL subcutaneo us auto-injec tor 2021 022 [email or web address] [facility] [address], [address], 2 16:33:47 hydrochlor othiazide 12.5 mg tablet 2020 021 [address] [address], [address], 1 17:36:53 hydrochlor othiazide 12.5 mg tablet 2020 021 NISH[facility] [address], [address], 1 16:01:13 Ventolin HFA 90 mcg/actuat ion aerosol inhaler 2019 020 [facility] [address], [address], 0 16:05:40 hydrochlor othiazide 12.5 mg tablet 2019 020 [facility] [address], [address], 0 16:01:23 hydrochlor othiazide 12.5 mg tablet 2019 020 [facility] [address] [place], [address], 0 13:10:00 Patient TargetsNo targets recorded. Patient InstructionsNo instructions recorded. Reason for Referral None Reported. Results Created Date Observation Date Name Description Value Unit Range Abnormal Flag Note LastModifiedBy Organization Detail LastModifiedTime 01/03/20 21 01/03/2021 CMP, serum or plasm a glucose 87 mg/dL 65-99 Not Available [facility] ([facility]) [address] [place], [address], 01/05/2021 17:07:29 01/03/20 21 01/03/2021 CMP, serum or plasm a BUN 14 mg/dL 6-24 Not Available [facility] ([facility] [address] [place], [address], 01/05/2021 17:07:29 01/03/20 21 01/03/2021 CMP, serum or plasm a creatinine 0.80 mg/dL 0.76-1 .27 Not Available [facility] ([facility]) [address] [place], [address], 01/05/2021 17:07:29 01/03/20 21 01/03/2021 CMP, serum or plasm a eGFR if nonafricn AM 105 mL/mi n/1.7 3 >59 Not Available [facility] ([facility]) [address] [place], [address], 01/05/2021 17:07:29 01/03/20 21 01/03/2021 CMP, serum or plasm a eGFR if africn AM 121 mL/mi n/1.7 3 >59 Lab radhika curre ntly repor ts eGFR in compl iance with the curre nt recom menda tions of the [facility] ation . [facility] will updat e repor ting as new guide lines are publi shed from the NKF-A SN Task force . Not Available [facility] ([facility]) [address] [place], [address], 01/05/2021 17:07:29 01/03/20 21 01/03/2021 CMP, serum or plasm a BUN/creatini ne ratio 18 9-20 Not Available [facility] [address] [place], [address], 01/05/2021 17:07:29 01/03/20 21 01/03/2021 CMP, serum or plasm a sodium 142 mmol/ L 134-14 4 Not Available [facility] ([facility] [address] [place], [address], 01/05/2021 17:07:29 01/03/20 21 01/03/2021 CMP, serum or plasm a potassium 4.5 mmol/ L 3.5-5. 2 Not Available [facility] ([facility] [address] [place], [address], 01/05/2021 17:07:29 01/03/20 21 01/03/2021 CMP, serum or plasm a chloride 103 mmol/ L 96-106 Not Available [facility] ([facility]) [address] [place], [address], 01/05/2021 17:07:29 01/03/20 21 01/03/2021 CMP, serum or plasm a carbon dioxide, total 25 mmol/ L 20-29 Not Available [facility] ([facility] [address] [place], [address], 01/05/2021 17:07:29 01/03/20 21 01/03/2021 CMP, serum or plasm a calcium 9.5 mg/dL 8.7-10 .2 Not Available [facility] ([facility] [address] [place], [address], 01/05/2021 17:07:29 01/03/20 21 01/03/2021 CMP, serum or plasm a protein, total 7.0 g/dL 6.0-8. 5 Not Available [facility] ([facility] [address] [place], [address], 01/05/2021 17:07:29 01/03/20 21 01/03/2021 CMP, serum or plasm a albumin 4.3 g/dL 4.0-5. 0 Not Available [facility] ([facility] [address] [place], [address], 01/05/2021 17:07:29 01/03/20 21 01/03/2021 CMP, serum or plasm a globulin, total 2.7 g/dL 1.5-4. 5 Not Available [facility] ([facility] [address] [place], [address], 01/05/2021 17:07:29 01/03/2001/03/2021 CMP, serum or plasm a A/G ratio 1.6 1.2-2. 2 Not Available [facility] ([facility] [address] [place], [address], 01/05/2021 17:07:29 01/03/2001/03/2021 CMP, serum or plasm a bilirubin, total 0.4 mg/dL 0.0-1. 2 Not Available [facility] ([facility] [address] [place], [address], 01/05/2021 17:07:29 01/03/2001/03/2021 CMP, serum or plasm a alkaline phosphatase 70 IU/L 39-117 Not Available [facility] [address] [place], [address], 01/05/2021 17:07:29 01/03/2001/03/2021 CMP, serum or plasm a AST (SGOT) 35 IU/L 0-40 Not Available [facility] ([facility] [address] [place], [address], 01/05/2021 17:07:29 01/03/20 21 01/03/2021 CMP, serum or plasm a ALT (SGPT) 43 IU/L 0-44 Not Available [facility] ([facility]) [address], [place], [address], 01/05/2021 17:07:29 01/03/20 21 01/03/2021 CBC WBC 7.9 x10e3 /uL 3.4-10 .8 Not Available [facility] ([facility] [address] [place], [address], 01/05/2021 17:07:30 01/03/20 21 01/03/2021 CBC RBC 4.52 x10e6 /uL 4.14-5 .80 Not Available [facility] ([facility] [address] [place], [address], 01/05/2021 17:07:30 01/03/20 21 01/03/2021 CBC hemoglobin 13.7 g/dL 13.0-1 7.7 Not Available [facility] ([facility]) [address], [place], [address], 01/05/2021 17:07:30 01/03/20 21 01/03/2021 CBC hematocrit 39.7 % 37.5-5 1.0 Not Available [facility] ([facility] [address] [place], [address], 01/05/2021 17:07:30 01/03/20 21 01/03/2021 CBC MCV 88 fL 79-97 Not Available [facility] ([facility] [address] [place], [address], 01/05/2021 17:07:30 01/03/20 21 01/03/2021 CBC MCH 30.3 pg 26.6-3 3.0 Not Available [facility] ([facility]) [address], [place], [address], 01/05/2021 17:07:30 01/03/20 21 01/03/2021 CBC MCHC 34.5 g/dL 31.5-3 5.7 Not Available [facility] ([facility]) [address], [place], [address], 01/05/2021 17:07:30 01/03/20 21 01/03/2021 CBC RDW 13.2 % 11.6-1 5.4 Not Available [facility] ([facility]) [address], [place], [address], 01/05/2021 17:07:30 01/03/20 21 01/03/2021 CBC platelets 318 x10e3 /uL 150-45 0 Not Available [facility] ([facility]) [address], [place], [address], 01/05/2021 17:07:30 01/03/20 21 01/03/2021 CBC NRBC SACK MAKER Not Available [facility] ([facility]) [address], [place], [address], 01/05/2021 17:07:30 01/03/20 21 01/03/2021 lipid panel , serum cholesterol, total 168 mg/dL 100-19 9 Not Available [facility] ([facility] [address] [place], [address], 01/05/2021 17:07:30 01/03/20 21 01/03/2021 lipid panel , serum triglyceride s 234 mg/dL 0-149 above high normal Not Available [facility] ([facility] [address] [place], [address], 01/05/2021 17:07:30 01/03/20 21 01/03/2021 lipid panel , serum HDL cholesterol 33 mg/dL >39 below low normal Not Available [facility]) [address], [place], [address], 01/05/2021 17:07:30 01/03/20 21 01/03/2021 lipid panel , serum VLDL cholesterol abigail 40 mg/dL 5-40 Not Available [facility] [address], [place], [address], 01/05/2021 17:07:30 01/03/20 21 01/03/2021 lipid panel , serum LDL chol calc ([facility]) 95 mg/dL 0-99 Not Available [facility] [address] [place], [address], 01/05/2021 17:07:30 01/03/2001/03/2021 lipid panel , serum comment: SACK MAKER Not Available [facility] ([facility]) [address], [place], [address], 01/05/2021 17:07:30 01/03/2001/03/2021 lipid panel , serum LDL/HDL ratio 2.9 ratio 0.0-3. 6 LDL/H DL Ratio Men Women 1/2 Avg.R isk 1.0 1.5 Avg.R isk 3.6 3.2 2X Avg.R isk 6.2 5.0 3X Avg.R isk 8.0 6.1 Not Available [facility] ([facility]) [address], [place], [address], 01/05/2021 17:07:30 01/03/20 21 01/03/2021 testo stero ne, free + total , serum testosterone , serum 119 NG/dL 264-91 6 below low normal Adult male refer ence inter doris is based on a popul ation of healt hy nonob spencer males (BMI <30) betwe en 19 and 39 years old. Pushpa mishra et.al . JCEM 2017, 102;1 161-1 173. PMID: 27035 103. Eff ectiv e January 20, 2021 Testo stero ne, Serum refer ence inter doris will be burrows ing to: Age Male Femal e 0 - 30 days 0 - 650 4 - 190 1 - 5 month s 0 - 650 0 - 42 6 month s 0 - 36 0 - 42 7m- 1 year 0 - 36 1 - 26 2 - 5 years 0 - 36 3 - 33 6 - 8 years 0 - 36 3 - 25 9 - 10 years 0 - 21 1 - 33 11 years 1 - 161 5 - 58 12 years 2 - 521 5 - 58 13 - 15 years 28 - 656 12 - 71 16 - 17 years 150 - 785 12 - 71 18 - 19 years 150 - 785 13 - 71 20 - 30 years 264 - 916 13 - 71 31 - 40 years 264 - 916 8 - 60 41 - 60 years 264 - 916 4 - 50 61 - 80 years 264 - 916 3 - 67 >80 years 264 - 916 2 - 45 Not Available [facility] ([facility]) [address] [place], [address], 01/05/2021 17:07:31 01/03/20 21 01/05/2021 testo stero ne, free + total , serum free testosterone (direct) 2.4 pg/mL 6.8-21 .5 below low normal Not Available [facility] ([facility] [address] [place], [address], 01/05/2021 17:07:31 01/03/20 21 01/03/2021 HbA1c (hemo globi n A1c), blood hemoglobin A1C 5.7 % 4.8-5. 6 above high normal Predi abete s: 5.7 - 6.4 Diabe deandra: >6.4 Glyce augustus contr ol for adult s with diabe deandra: <7.0 Not Available [facility] ([facility]) [address] [place], [address], 01/05/2021 17:07:32 02/09/20 20 02/06/2020 XR, chest , 2 view No observ ation record ed. [email or web address] Not Available 2019 15:03:17 02/12/20 20 02/07/2020 exerc ise stres s test No observ ation record ed. [email or web address] Not Available 2019 15:03:18 Result Notes None recorded. Problems Name Problem SNOMED Code Status Onset Date Resolution Date Notes Provider Name and Address Organization Details Recorded Time Asthma 039536795 Active 2019 Not Available [facility] 3 11:24:51 Morbid obesity 909746643 Active 2020 Not Available [facility] 3 11:24:51 Body mass index 40+ - severely obese 480963329 Active 2020 Not Available [facility] 3 11:24:51 Erectile dysfunction 430121038 Active 2020 Not Available [facility] 3 11:24:51 Hypogonadism 01952391 Active 2021 Not Available [facility] 3 11:24:51 Benign paroxysmal positional vertigo 592194789 Active 2021 Not Available [facility] 3 11:24:51 Essential hypertension 12733648 Active Not Available [facility] 3 11:24:51 On examination - overweight Active Not Available [facility] 3 11:24:51 Pain of multiple joints 88588320 Active Not Available [facility] 3 11:24:51 Paresthesia of upper limb 48063707 Active Not Available [facility] 3 11:24:51 Paresthesia of foot 172489412 Active 2016 Not Available [facility] 3 11:24:51 Hyperglycemia 69678881 Active 2016 Not Available [facility] 3 11:24:51 Hypertriglyce ridemia 996123768 Active 2016 Not Available [facility] 3 11:24:51 Problem Notes None recorded. Procedures Surgical History Date Name Laterality Status Provider Name and Address Organization Details Recorded Time Tonsillectomy completed JESSE Enriquez SIMary Alice 06/02/2016 10:26:35 Hernia Repair completed JESSE Enriquez LILAMary Alice 06/02/2016 10:26:35 Imaging Results Imaging Date Name Status LastModified by Organiz ation Details LastModified Time 02/06/2020 XR, chest, 2 view completed [email or web address] Information not available 02/13/2020 15:03:17 02/07/2020 exercise stress test completed Information not available 02/13/2020 15:03:18 Procedure Notes None recorded. Medical Equipment None Reported. Allergies No known drug allergies Medications Name Sig Start Date Stop Date Status Note LastModified by Organization Details LastModified Time atorvastati n 20 mg tablet TAKE 1 TABLET BY MOUTH EVERY DAY active Not Available Not Available No t Available lisinopril 20 mg tablet TAKE 1 TABLET BY MOUTH EVERY DAY IN THE MORNING FOR 30 DAYS 2022 active Not Available Not Available Not Avai lable diclofenac potassium 50 mg tablet Take 1 tablet twice a day by oral route with meals. 02/18 completed Not Available Not Available Not Available gabapentin 100 mg capsule Take 1 capsule 3 times a day by oral route. 02/18 completed Not Available Not Available Not Available albuterol sulfate HFA 90 mcg/actuati on aerosol inhaler INHALE 2 PUFF(S) BY MOUTH THREE TIMES DAILY active Not Available Not Available No t Available metoprolol tartrate 25 mg tablet TAKE 1/2 TABLET BY MOUTH TWICE DAILY active Not Available Not Available No t Available hydrochloro thiazide 12.5 mg tablet TAKE 1 TABLET BY MOUTH EVERY DAY active Not Available Not Available No t Available testosteron e 1.62 % (20.25 mg/1.25 gram) transdermal gel packet APPLY 1 PACKET TO SKIN EVERY DAY IN THE MORNING 2021 active Not Available Not Available Not Avmarietta lable Xyosted 75 mg/0.5 mL subcutaneou s auto-inject or Inject 75 mg every week by subcutane ous route. 2021 active Not Available Not Available Not Avai lable Vitals Date Recorded Body height Body mass index (BMI) Body weight Body temperature Oxygen saturation Oxygen saturation in Arterial blood by Pulse oximetry Heart rate Systolic blood pressure Diastolic blood pressure Provider Name and Address Organization Details Last Updated DateTime 1 165.1 cm 40.3 kg/m2 463854. 35 g 98.3 [degF] 97 % 97 % 56 /min 128 mm[Hg] 82 mm[Hg] JESSE Ashley - [facility] 1 15:36:57 Date Recorded Body height Body mass index (BMI) Body weight Body temperature Heart rate Oxygen saturation Oxygen saturation in Arterial blood by Pulse oximetry Systolic blood pressure Diastolic blood pressure Provider Name and Address Organization Details Last Updated DateTime 1 165.1 cm 38.3 kg/m2 787227. 25 g 98.1 [degF] 60 /min 96 % 96 % 112 mm[Hg] 76 mm[Hg] Bri Kelley MA [facility] 1 16:49:49 Date Recorded Body height Body mass index (BMI) Body weight Body temperature Heart rate Oxygen saturation Oxygen saturation in Arterial blood by Pulse oximetry Systolic blood pressure Diastolic blood pressure Provider Name and Address Organization Details Last Updated DateTime 2 165.1 cm 38.8 kg/m2 117933. 02 g 98.1 [degF] 73 /min 97 % 97 % 136 mm[Hg] 80 mm[Hg] Bri Kelley MA [facility] 2 15:46:58 Social History Question Answer Notes LastModified by Organizat ion Details LastModified Time Tobacco Smoking Status Never Smoker Flip Benjamin MA [facility], [facility] 06/02/2016 10:26:35 What Was The Date Of Your Most Recent Tobacco Screening? 11/12/2021 [email or web address] Information not available 11/12/2021 Sex: Unknown Functional Status None recorded. Mental Status None recorded. Family History Relationship Description Onset Age of this Age Resolved Age Notes LastModified by Organization Details LastModified Time Mother Diabetes mellitus [email or web address] Not available 06/02 10:26:35 Mother Heart disease [email or web address] Not available 06/02 10:26:35 Mother History of hypertension [email or web address] Not available 10:26:35 Mother Migraine [email or web address] Not availab le 06/02/2016 10:26:35 Father Diabetes mellitus [email or web address] Not available 06/02 10:26:35 Father Heart disease [email or web address] Not available 06/02 10:26:35 Father History of hypertension [email or web address] Not available 10:26:35 Father Hypercholest erolemia [email or web address] Not available 06/02 10:26:35 Medical History Condition Response Muscle, Joint, or Bone Problems Y High Blood Pressure Y Asthma Y High Cholesterol Y Past Encounters Encounter ID Performer Location Encounter Start Date Encounter Closed Date Diagnosis/Indication Diagnosis SNOMED-CT Code Diagnosis ICD10 Code Diagnosis Note [id number] MD Nima Encinas (Adult Med) [address] [place] [phone] 0 06/02/2016 10:01:36 06/03/2016 12:29:03 Essential hypertension 33072872 I10 On examina tion - overweight 186925926 E66.3 Pain of mu ltiple joints 76918178 M25.50 Paresthesi a of upper limb 60352044 R20.2 History an d physical examination, insurance 0011896 Z02.6 [id number] MD Nima Encinas (Adult Med) [address] [place] [id number] 0 06/22/2016 11:51:50 06/22/2016 18:03:57 Malaise and fatigue 136172028 R53.81 [id number] MD Nima Encinas (Adult Med) [address] [place] [id number] 0 08/18/2016 16:39:03 08/19/2016 11:12:55 Pain of multiple joints 40174153 M25.50 Essential hypertension 37646697 I10 [id number] MD Nima Encinas (Adult Med) [address] [place] [id number] 0 03/29/2017 15:58:31 03/29/2017 18:14:11 Essential hypertension 25862643 I10 Paresthesia of foot 3090 26800 R20.2 Paresthesi a of upper limb 83419472 R20.2 Pain of mu ltiple joints 65793711 M25.50 [id number] MD Nima Encinas (Adult Med) [address] [place] [address] 0 02/19/2020 08:24:11 03/18/2020 11:00:00 [id number] MD Nima Encinas (Adult Med) [address] [place] [address]652 0 02/20/2020 08:12:06 02/21/2020 16:54:11 Essential hypertension 59754901 I10 Restart HCTZ [id number] MD Nima Velez (Adult Med) [address] [place] [address] 33035[address]111 0 05/17/2020 11:28:14 05/17/2020 17:05:00 Essential hypertension 37317940 I10 Asthma 749590021 J45.90 9 [id number] Jeremie Marshall MD N[facility] (Adult Med) [address] [place] [address] [phone] 0 01/02/2021 15:17:38 01/03/2021 16:10:41 Asthma 566773409 J45.909 Hyperglycemia 26166696 R 73.9 Hypertriglyceridemia 302 212352 E78.2 Body mass index 40+ - severely obese 628709166 Z68.41 Essential hypertension 03496715 I10 Restart HCTZ Erectile dysfunction 860 843745 F52.21 [id number] Jeremie Marshall MD [facility] (Adult Med) [address] [place] [address] [id number] 0 06/09/2021 16:18:18 06/10/2021 12:03:29 Essential hypertension 89296582 I10 Restart HCTZ [id number] Jeremie Marshall MD [facility] (Adult Med) [address] [place] [address] [id number] 0 11/12/2021 15:38:53 11/13/2021 09:58:46 Hypogonadism 64371490 E29.1 Discussed [address] Essential hypertension 70256092 I10 Hyperglycemia 73171707 R 73.9 F/U with endocrine Benign par oxysmal positional vertigo 830379259 H81.13 Cont rx as per PT recommenda tions Health Concerns Section Related Observation LastModified by Organization Detai ls LastModified Time None Recorded Concern Status LastModified by Organization Details LastModified Time None Recorded Advance Directives Directive None Recorded Payers Encounter Date Sequence Insurance Name Policy Number Policy [place] Covered Member ID [place] Member ID Guarantor Name 02/20/2020 1 [employer] [id number] Дмитрий Trejo [id number] Дмитрий Trejo 05/17/2020 1 [employer] [id number] Дмитрий Trejo [id number] Дмитрий Trejo 01/02/2021 1 [facility] [id number] Дмитрий Trejo [id number] Дмитрий Trejo 06/09/2021 1 [facility] [id number] Дмитрий Trejo [id number] Дмитрий Trejo 11/12/2021 1 [facility] [id number] Дмитрий Trejo [id number] Дмитрий Trejo Notes Date Note Type Note Provider Name and Address Organization Details Recorded Time 02/20/2020 text/html Telephone visit due to Covid-19 precautions. He was hospitalized eleven dads ago after complaining of CP, SOB, dizziness. His cardiac evaluation was unremarkable. R=He has also been experiencing headaches and has noted blood pressure elevation as high as 172/101. He had been on an antihypertensive medication until 03/2017 when he said I stopped the medication. 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 Yo Bennett PA-C Attn: Accounting,[address] [facility], [place], [address], [facility] 05/20/2020 16:42:25 01/02/2021 text/html Decreased erecti ons. Out of BP meds for past week and has felt lightheaded. Jeremie Marshall MD Attn: Accounting,[address] [place], [address], [facility] 01/02/2021 16:03:48 06/09/2021 text/html Needs med refills. Jeremie Marshall MD Attn: Accounting,[address] [place], [address], [facility] 06/09/2021 17:37:46 11/12/2021 text/html Has been seen by endocrinology. Meds for ED not covered by insurance. Otherwise doing well. Jeremie Marshall MD Attn: Accounting,[address] [facility], [place], [address], [facility] 11/12/2021 16:41:28
--- OUTSIDE RECORDS SUMMARY | 2025-01-11 09:13 | XMS_ITS | Clinical Summary ---
Author Organization [facility] Address [address] [place] [address] Care Team Providers Care Reed Press Feeder Name Role Phone Nikko Hebert DO Primary Care Provider [phone] Source Comments [facility],non-owned Affiliates and Associated Physician Practices is amultiple site organization consisting of ambulatory clinics and hospital sitesin [place], [place], [place] and [place]. This disclosure is being madepursuant to the Care Everywhere program and may not contain all information available regarding this patient. Last updated 18.[facility] Allergies No known active allergies Medications * Be aware that medications may not be up to date on this document. Alwaysverify current medications with the patient. albuterol HFA (Proventil; Ventolin; Proair) 108 (90 Base) MCG/ACT inhaler INHALE 2 PUFF(S) BY MOUTH THREE TIMES DAILY Active hydroCHLOROthia zide 12.5 MG Take 1 (one) tablet by mouth once daily 3 Active losartan (Cozaar) 100 MG tablet Active testosterone 0.1% CREA compd cream Active tadalafil (Cialis) 20 MG tablet 4 Active gabapentin (Neurontin) 300 MG capsuleIndicati ons:Neuropathic Pain Take 1 (one) capsule by mouth at bedtime for 7 days, THEN 1 (one) capsule 2 times daily for 7 days, THEN 1 (one) capsule 3 times daily for 16 days. Reasons: Neuropathic Pain. 69 capsule 4 Active DULoxetine (Cymbalta) 30 MG capsule Active Active Problems Problem Noted Date Diagnosed Date Essential hypertension 04/19/2024 Multiple joint pain 04/19/2024 Paresthesia of upper limb 04/19/2024 Benign paroxysmal positional vertigo 11/11/2021 Erectile dysfunction 01/02/2021 Morbid obesity 01/02/2021 Asthma 05/17/2020 Hyperglycemia 04/01/2017 Hypertriglyceridemia 04/01/2017 Paresthesia of foot 03/29/2017 Social History Tobacco Use Types Packs/Day Years Used Date Smoking Tobacco: Former Cigarettes Smokeless Tobacco: Never Tobacco Cessation:Counseling Given: Not Answered Alcohol Use Standard Drinks/Week Comments Yes 0 (1 standard drink = 0.6 oz pur e alcohol) PHQ-2 Answer Date Recorded Patient Health Questionnaire-2 Score 1 09/26/2024 Sex and Gender Information Value Date Recorded Sex Assigned at Not on file Legal Sex Male 3:40 PM CDT Gender Identity Not on file Sexual Orientation Not on file Last Filed Vital Signs Vital Sign Reading Time Taken Comments Blood Pressure 130/76 08/28/2024 7:54 AM UPPER SHAPER Pulse 65 08/28/2024 7:54 AM UPPER SHAPER Temperature 36.7 C (98.1 F) 08/28/2024 7:54 AM UPPER SHAPER Respiratory Rate 16 08/28/2024 7:54 AM UPPER SHAPER Oxygen Saturation 96% 07/17/2024 8:27 AM UPPER SHAPER Inhaled Oxygen Concentration - - Weight 99.8 kg (220 lb) 09/27/2024 10:31 AM UPPER SHAPER Height 162.6 cm (5' 4 ) 09/27/2024 10:31 AM UPPER SHAPER Body Mass Index 37.76 09/27/2024 10:31 AM UPPER SHAPER Plan of Treatment Health Maintenance Due Date Last Done Comments COLON MONITORING 1971 COLONOSCOPY - COLON CA SCREENING 1971 CT COLONOGRAPHY - COLON CA SCREENING 1971 FIT - COLON CA SCREENING 1971 FLEX SIG - COLON CA SCREENING 1971 LIPID TESTING 1971 HIV SCREENING 1986 HEPATITIS C SCREENING 04/09/1989 DTAP/TDAP/TD VACCINES (1 - Tdap) 1990 HEPATITIS B VACCINE (1 of 3 - 19+ 3-dose series) 1990 PNEUMOCOCCAL VACCINE 50+ (1 of 2 - PCV) 1990 ZOSTER VACCINE (1 of 2) 2021 SCREENING FOR DIABETES 04/19/2024 COVID-19 VACCINE (1 - 2023-2 5 season) 2024 INFLUENZA VACCINE (Season Ended) 2025 COLOGUARD (AGES 45-75) - COL ON CA SCREENING 07/11/2027 07/11/2024 Colorectal Cancer Screening 07/11/2027 DEPRESSION SCREENING Completed 09/27/2024, 04/26/2024 HIB VACCINE Aged Out No longer eligi ble based on patient's age to complete this topic HPV VACCINE Aged Out No longer eligi ble based on patient's age to complete this topic MENINGOCOCCAL (Group B) VACCINE SHARED DECISION-MAKING Aged Out No longer eligible based on patient's age to complete this topic MENINGOCOCCAL GROUPS A/C/Y/W VACCINE Aged Out No longer eligible b ased on patient's age to complete this topic Insurance [employer] Care Teams Reed Press Feeder Relationship Specialty Start Date End Date Nikko Hebert DO [address] [place] [phone] PCP - General Internal Medicine 04/19/24
--- NOTE | 2025-01-11 12:00 | NEURO_ITS ---
clinical note: Patient is 54 years old male with complaints of paresthesias in both feet and lower back pain. He had a fall on concrete stairs on October 04, 2023. No history of diabetes mellitus. A brief examination of the lower limbs did not show any focal muscle weakness or atrophy or fasciculations. The results of the EMG nerve can study are given below. Summary of findings: 1. Left and right peroneal motor distal latencies, amplitudes and conduction velocities were within normal limits. 2. Left and right tibial motor distal latencies were within normal limits however amplitudes are mildly decreased. Conduction velocity was moderately decreased more on the left than right side. 3. Left and right medial plantar sensory were absent. However left and right sural sensory distal latencies were within normal limits but amplitudes were significantly decreased. 4. Left and right H reflex latencies were mildly prolonged on the right than left side however amplitudes were moderately decreased on both sides. 5. EMG examination performed on various muscles of the lower limbs and related paraspinal muscles and L3-S1 distribution. No denervation changes were seen in paraspinal or peripheral muscles. Motor unit amplitude, duration and recruitment pattern were within normal limits. 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 Etiologic correlation is recommended There is no supportive evidence for L3-S1 radiculopathy at this time however negative examination would not rule out possibility of the same and hence if clinically indicated radiographic correlation may be helpful. Bjorn Hoff MD, FAAN, FAANEM Neurologist Nerve Conduction Studies Motor Nerve Results ? Latency Amplitude F-Lat Segment Distance CV Comment Site (ms) (mV) (ms) (cm) (m/s) Left Peroneal (EDB) Motor Ankle 4.6 4.8 Bel Fib Head 11.4 3.8 Bel Fib Head-Ankle 290 43 Pop Fossa 13.0 3.7 Pop Fossa-Bel Fib Head 90 56 Right Peroneal (EDB) Motor Ankle 3.9 2.7 Bel Fib Head 10.6 2.1 Bel Fib Head-Ankle 260 39 Pop Fossa 12.5 2.0 Pop Fossa-Bel Fib Head 90 47 Left Tibial (AHB) Motor Ankle 3.4 4.6 Knee 15.2 2.6 Knee-Ankle 295 25 Right Tibial (AHB) Motor Ankle 5.4 5.5 Knee 16.4 2.7 Knee-Ankle 400 36 Sensory Nerve Results ? Latency (Peak) Amplitude (P-P) Segment Distance CV Comment Site (ms) (?V) (cm) (m/s) Left Medial Plantar (Ortho) Sensory Great Toe-Med Mall NR NR Great Toe-Med Mall 100 NR Right Medial Plantar (Ortho) Sensory Great Toe-Med Mall NR NR Great Toe-Med Mall 100 NR Left Sural Sensory Calf-Lat Mall 3.3 4 Calf-Lat Mall 120 36 Right Sural Sensory Calf-Lat Mall 3.4 3 Calf-Lat Mall 120 35 H-Reflex Results ? M-Lat H Lat H Peak-Peak Amp M Peak-Peak Amp H-M Lat Site (ms) (ms) mV mV (ms) Left Tibial H-Reflex Pop Fossa - 30.7 2.9 - - Right Tibial H-Reflex Pop Fossa - 33.7 2.4 - - Electromyography ?Side Muscle Nerve Ins Act Fibs Psw Amp Dur Recrt Comment Right BicepsFemS Sciatic Nml Nml Nml Nml Nml Nml Right Semimembranosus Sciatic Nml Nml Nml Nml Nml Nml Right AntTibialis Dp Br Fibular Nml Nml Nml Nml Nml Nml Right Gastroc Tibial Nml Nml Nml Nml Nml Nml Right VastusMed Femoral Nml Nml Nml Nml Nml Nml Left BicepsFemS Sciatic Nml Nml Nml Nml Nml Nml Left Semimembranosus Sciatic Nml Nml Nml Nml Nml Nml Left AntTibialis Dp Br Fibular Nml Nml Nml Nml Nml Nml Left Gastroc Tibial Nml Nml Nml Nml Nml Nml Left VastusMed Femoral Nml Nml Nml Nml Nml Nml Left L4 Parasp Rami Nml Nml Nml Nml Nml Nml Right L4 Parasp Rami Nml Nml Nml Nml Nml Nml Right L5 Parasp Rami Nml Nml Nml Nml Nml Nml Left L5 Parasp Rami Nml Nml Nml Nml Nml Nml MTDD
== END 2025-01-11 08:58 | disposition home or self-care (01) ==
PROVIDERS: PCP Internal Medicine; Visit Provider Psychiatry & Neurology Neurology
DX: G62.9 Polyneuropathy, unspecified (principal); G57.93 Unspecified mononeuropathy of bilateral lower limbs; E11.9 Type 2 diabetes mellitus without complications
CPT/HCPCS: 95886; 95910

== ENCOUNTER 2025-03-19 08:42 | Outpatient (CLI) | payer OTHER, SELFPAY ==
--- NOTE | ~2025-03-19 | XR_ITS ---
EXAM/ PROCEDURE: XR hand BI arthritis min 3V - 03/19/2025 8:45 CDT HISTORY: 54 years old Male with M19.049 - Primary osteoarthritis, unspecified hand COMPARISON: None available TECHNIQUE: 7 view(s) FINDINGS/ IMPRESSION: There are no fractures or dislocations.Joint space narrowing, subchondral sclerosis, subchondral cyst formation and osteophyte formation, compatible with moderate osteoarthritis. Reviewed, dictated and finalized at location A.
== END 2025-03-19 08:43 | disposition home or self-care (01) ==
PROVIDERS: PCP Psychiatry & Neurology Neurology; Visit Provider Internal Medicine
DX: M19.049 Primary osteoarthritis, unspecified hand (principal); R76.8 Other specified abnormal immunological findings in serum
CPT/HCPCS: 73130

== ENCOUNTER 2025-04-19 08:05 | Outpatient (CLI) | payer OTHER, SELFPAY ==
--- OUTSIDE RECORDS SUMMARY | 2025-04-19 08:10 | XMS_ITS | Encounter Summary ---
Author Organization [facility] Address [address] [place] [address] Care Team Providers Care Package Wrapper Name Role Phone Nikko Hebert DO Primary Care Provider [phone] Reason for Visit * Reason Onset Date [...] [facility] - Centralized Scheduling [address] [place] [address] Oc Longo MD [address] [place] [address] Follow-up (Spk to Дмитрий, stated he has [...] on filedocumented in this encounter Care Teams Package Wrapper Relationship Specialty Start Date End Date Nikko Hebert DO [address] [place] [address] PCP - General Internal Medicine 04/19/24 documented as of this encounter
--- OUTSIDE RECORDS SUMMARY | 2025-04-19 08:10 | XMS_ITS | Clinical Summary ---
Author Organization [facility] Address [address] [place] [address] Care Team Providers Care Nuclear Spectroscopist Name Role Phone Nikko Hebert DO Primary Care Provider [phone] Source Comments [facility]non-owned Affiliates and Associated Physician Practices is amultiple site organization consisting of ambulatory clinics and hospital sitesin [place], [place], [place] and [place]. This disclosure is being madepursuant to the Care Everywhere program and may not contain all information available regarding this patient. Last updated 18.[facility] Allergies No known active allergies Medications * [...] Comments Blood Pressure 130/76 08/28/2024 7:54 AM SUGAR REPROCESS OPERATOR HEAD Pulse 65 08/28/2024 7:54 AM SUGAR REPROCESS OPERATOR HEAD Temperature 36.7 C (98.1 F) 08/28/2024 7:54 AM SUGAR REPROCESS OPERATOR HEAD Respiratory Rate 16 08/28/2024 7:54 AM SUGAR REPROCESS OPERATOR HEAD Oxygen Saturation 96% 07/17/2024 8:27 AM SUGAR REPROCESS OPERATOR HEAD Inhaled Oxygen Concentration - - Weight 99.8 kg (220 lb) 09/27/2024 10:31 AM SUGAR REPROCESS OPERATOR HEAD Height 162.6 cm (5' 4) 09/27/2024 10:31 AM SUGAR REPROCESS OPERATOR HEAD Body Mass Index 37.76 09/27/2024 10:31 AM SUGAR REPROCESS OPERATOR HEAD Plan of Treatment Health Maintenance Due Date [...] - 2023-2 5 season) 2024 INFLUENZA VACCINE (#1) 2025 COLOGUARD (AGES 45-75) - COL ON [...] complete this topic Insurance [employer] Care Teams Nuclear Spectroscopist Relationship Specialty Start Date End Date Nikko Hebert DO [address] [place] [phone] PCP - General Internal Medicine 04/19/24
--- NOTE | 2025-05-11 22:08 | WPDSLEEPSTUD ---
Sleep Study Date of Study: 04/19/25 Ordering Provider: CECILIA Fisher Interpreting Physician: Veronica David MD Sleep Study Type: Split Polysomnogram Height: 1.63 m Weight: 99.79 kg Body Mass Index: 37.8 Neck Circumference (inches): 19 [place]: 21 Reason for Sleep Study Hypersomnolence * 2020 home sleep test at [place] showed an apnea-hypopnea index of 4.3, did not qualify for treatment. Sleep History Дмитрий Trejo is a 55-year-old man with excessive daytime sleepiness, always falls asleep at [employer]. He also has drifted off while he has been driving the car. He has had some short-term memory loss. He uses a fan at night or otherwise he sweats while sleeping. He occasionally awakens from sleep feeling short of breath. He occasionally wakes at night with heartburn, belching or coughing.??He frequently snores, and frequently snores loudly enough that others complain. He constantly has trouble sleeping when he has a cold. He occasionally wakes up gasping for breath during the night. He constantly has breathing problems at night. He constantly sweats excessively at night. He rarely notices his heart pounding or beating irregularly during the night. He constantly falls asleep during the day. He constantly falls asleep involuntarily, occasionally falls asleep while driving. He does not experience loss of muscle tone with strong emotion. He frequently has daytime difficulty at work due to excessive sleepiness. He occasionally feels paralyzed on waking or falling asleep. He frequently experiences vivid dreams upon waking or falling asleep. He rarely feels afraid of going to sleep. He occasionally has nightmares. He frequently recalls his dreams. He constantly has thoughts racing through his mind. He rarely feels sad or depressed. He occasionally feels anxiety. He frequently notices parts of his body jerk. He constantly kicks during the night. He constantly feels crawling or aching feelings in his legs which he attributes to his neuropathy. He constantly feels leg pain at night. He rarely has morning jaw pain, occasionally grinds his teeth at night. He constantly feels bothered by pain during the day, frequently awakened by pain during the night. He constantly wakes up feeling stiff in the morning, and he constantly wakes feeling sore or achy. He always awakens with pain in his neck, spine, or joints. Normal bedtime is between 7:00 p.m. and 8:30 p.m., falling asleep as soon as his head hits the pillow, waking every half our, or sometimes every few hours. He wakes to go to the bathroom, sometimes waking for no apparent reason. Wake time is between 2:00 a.m. and 2:30 a.m.. He typically gets 5-6 interrupted hours of sleep at night. He takes naps in the day, and a short nap lasting 10-15 minutes may be refreshing. Most days he takes a 10-15 minute nap during his lunch break at work. Habits:??Tobacco: former smoker Caffeine: 3-4 per day Alcohol: none Recreational substances: none [facility] Past Medical History Medical History Obstructive sleep apnea Daytime sleepiness Peripheral neuropathy Positive YE (antinuclear antibody) Fracture of transverse process of lumbar vertebra Back fracture History of kidney stones Hypogonadism Hyperlipidemia Hypertension Asthma Surgical History Surgical History H/O hernia repair X2 History of tonsillectomy and adenoidectomy Family History Family History Father Chronic obstructive pulmonary disease Emphysema lung Lung cancer Mother Chronic obstructive pulmonary disease Emphysema lung Sibling Lymphoma in remission Seizures Sibling Acute myocardial infarction Social History Social History Social History: The patient works for [employer]. He lives with his who is the durable power contracts attorney for healthcare. The patient has 2 children. He is a lifelong nonsmoker. He does not use any alcohol marijuana or illicit drugs. Code status full code Smoking status: Never smoker Alcohol intake: never Alcohol use details: Rarely Substance use: never Do You Feel Safe in your Home?: Yes Lack of Transportation: No Lack of Food: Never True Current Housing: I Have Housing Concerned About Future Housing: No Difficulty Paying Gas/Electric Bills: No Difficulty Paying for Meds: No Currently Unemployed: No Education: Bachelor's Degree Difficulty w/ Childcare or Family Care: No Living arrangements: with family Occupation/Education: occupation Gender identity (if verbalized by the patient): Male Spiritual care concerns: No Medications Home Medications ?Medication ?Instructions ?Recorded ?Confirmed ?Type albuterol sulfate 90 mcg/actuation 2 puff inhalation QID PRN 02/06/20 03/21/25 History aerosol inhaler Shortness Of Breath hydrochlorothiazide 12.5 mg tablet 12.5 mg PO DAILY #90 tabs 01/15/25 03/21/25 Rx losartan 100 mg tablet 100 mg PO DAILY #90 tabs 02/26/25 03/21/25 Rx magnesium citrate 100 mg tablet 100 mg PO DAILY 03/19/25 03/21/25 History testosterone 1 ml topical DAILY 03/19/25 03/21/25 History eszopiclone 2 mg tablet (Lunesta) 2 mg PO ONCE #1 tablet 03/21/25 03/21/25 Rx Sleep Procedure A split night polysomnogram using the Oyster multi-channel system recorded the standard physiologic parameters including EEG, EOG, submentalis EMG, anterior tibialis EMG, EKG, body position, nasal and oral airflow using nasal pressure sensor and thermistor. Respiratory parameters of chest and abdominal movements were recorded with Respiratory Inductance Plethysmography belts. Oxygen saturation was recorded by pulse oximetry. Video monitoring was also performed. Sleep stages, periodic limb movements, and EEG arousals were scored in 30 second epochs according to the criteria of the AASM Scoring Manual. The Apnea-Hypopnea Index was calculated using CMS guidelines for definition of hypopnea while scoring respiratory events. the patient self-administered Lunesta 2 mg at the beginning of the study. After the baseline portion the patient met criteria for a titration with an AHI of 7.8 using 4% criteria and desaturation to 67%. He was not able to sleep supine due to a history of a broken back at 3 levels. He used a medium ResMed AirTouch F20 fullface mask with heated humidity. The initial CPAP pressure was 5 cm, titrated to 6 cm, 7 cm. At CPAP 7 cm, the patient spent 223 minutes in bed, 43.5 minutes awake, 160.5 minutes in non-REM and 19 minutes in REM. Sleep efficiency was 80.5%. The residual apnea-hypopnea index was 0.3. The lowest saturation was 90%. Sleep Architecture During the diagnostic portion of the study, the total recording time was 141.5 minutes. The total sleep time was 130.5 minutes. Sleep latency was 5.0 minutes. There was no REM. Sleep Efficiency was 92.2%. The patient had 8 awakenings for an awakening index of 3.7. Wake after sleep onset time was 6.0 minutes. The patient spent 5.0 minutes, 3.8% of total sleep time in Stage N1. The patient spent 115.5 minutes, 88.5% in Stage N2. The patient spent 10.0 minutes, 7.7% in Stage N3. The patient spent no time in Stage REM sleep. At 11:41:13 PM the patient was placed on PAP treatment. During the treatment portion of the study, the total recording time was 359.1 minutes. The total sleep time was 309.5 minutes. Sleep latency was 1.0 minutes. REM latency was 71.5 minutes. Sleep Efficiency was 86.2%. Wake after Sleep Onset time was 48.5 minutes. The patient spent 18.5 minutes, 6.0% of total sleep time in Stage N1. The patient spent 239.0 minutes, 77.2% in Stage N2. The patient spent no time in Stage N3. The patient spent 52.0 minutes, 16.8% in Stage REM. Respiratory Analysis During the diagnostic portion of the study, the patient had 17 hypopneas, no obstructive apneas, no mixed apneas, and no central apneas for an overall Apnea Hypopnea Index of 7.8 events per hour. The REM Apnea Hypopnea Index was 0, no REM occurred on the baseline. The NREM Apnea Hypopnea Index was 7.8. The patient had a Central Apnea Hypopnea Index of 0. There were no Respiratory Effort Related Arousals resulting in a RERA index of - events per hour. The Respiratory Disturbance Index is 9.2 events per hour. There was no evidence of Connor-Day Respirations. During the treatment portion of the study, the patient had 1 hypopnea, no obstructive apneas, no mixed apneas, and no central apneas for an overall Apnea Hypopnea Index of 0.2 events per hour. The REM Apnea Hypopnea Index was 1.2. The NREM Apnea Hypopnea Index was 0. The patient had a Central Apnea Hypopnea Index of 0. There were no Respiratory Effort Related Arousals. The Respiratory Disturbance Index is 0.2 events per hour. There was no evidence of Connor-Day Respirations. Arousals During the diagnostic portion of the study, there were a total of 20 arousals for an arousal index of 9.2. There were 2 respiratory arousals for an index of 0.9. There were 3 periodic limb movement arousals for an index of 1.4. There were 3 isolated limb movement arousals for an index of 1.4. There were 12 spontaneous arousals for an index of 5.5. During the treatment portion of the study, there were a total of 26 arousals for an index of 5.0. There were no respiratory arousals There were 10 periodic limb movement arousals for an index of 1.9. There was 1 isolated limb movement arousal for an index of 0.2. There were 15 spontaneous arousals for an index of 2.9. Periodic Limb Movements During the diagnostic portion of the study, the patient had 19 isolated limb movements with an index of 8.7. The patient had 92 periodic limb movements with an index of 42.3. The patient had a total of 111 limb movements with a total limb movement index of 51.0. During the treatment portion of the study, the patient had 19 isolated limb movements with an index of 3.7. The patient had 466 periodic limb movements with an index of 90.3. The patient had a total of 485 limb movements with a total limb movement index of 94.0. Oximetry Data During the diagnostic portion of the study, the patient had an average oxygen saturation of 92% in wake with a minimum oxygen saturation of 86% and a maximum oxygen saturation of 98%. The patient had an average oxygen saturation of 89.4% in sleep with a minimum oxygen saturation of 67% and a maximum oxygen saturation of 98%. The patient had 25 oxygen desaturations resulting in an Oxygen Desaturation Index of 11.5. The patient spent 31.1 minutes, 22.3% of total sleep time with an oxygen saturation less than 88%. During the treatment portion of the study, the patient had an average oxygen saturation of 95.2% in wake with a minimum oxygen saturation of 91% and a maximum oxygen saturation of 99%. The patient had an average oxygen saturation of 94.2% in sleep with a minimum oxygen saturation of 90% and a maximum oxygen saturation of 98%. The patient had 1 oxygen desaturation resulting in an Oxygen Desaturation Index of 0.2. The patient spent no time with an oxygen saturation less than 88%. Snoring Profile Snoring was moderate to loud, eliminated during the titration. Cardiac Profile During the diagnostic portion of the study, the EKG showed normal sinus rhythm. The average pulse rate was 65.7 bpm. The minimum pulse rate was 50 bpm. The maximum pulse rate was 95 bpm. No arrhythmias noted. During the treatment portion of the study, the EKG showed normal sinus rhythm. The average pulse rate was 64.3 bpm. The minimum pulse rate was 52 bpm. The maximum pulse rate was 101 bpm. No arrhythmias noted. EEG Profile Unremarkable, no evidence of seizures. Assessment and Plan Assessment and Plan (1) Obstructive sleep apnea: Code(s): G47.33 - Obstructive sleep apnea (adult) (pediatric) Status: Acute Assessment and Plan: This split night sleep study on 04/19/2025 shows mild obstructive sleep apnea, the apnea-hypopnea index was 7.8 with desaturation to 67% and moderate snoring, successfully treated using CPAP 7 cm of water pressure and a medium ResMed AirTouch F20 fullface mask. At CPAP 7 cm, the patient spent 223 minutes in bed, 43.5 minutes awake, 160.5 minutes in non-REM and 19 minutes in REM. Sleep efficiency was 80.5%. The residual apnea-hypopnea index was 0.3. The lowest saturation was 90%.The patient should be prescribed this ResMed equipment as well as tubing, filters and reservoir. This should be used with all episodes of sleep. Compliance should be reviewed within 31-90 days of starting therapy for usage greater than 4 hours per night greater than 70% of the nights. The patient should be asked about symptoms such as excessive daytime sleepiness, quality of sleep, decreased nocturia, increased mental functioning such as memory, mood, and concentration. BMI is 37. Weight management is advised. Clinical data suggests that weight loss of 10% can reduce the severity of respiratory events and snoring and improve AHI by as much as 25%. (2) PLMD (periodic limb movement disorder): Code(s): G47.61 - Periodic limb movement disorder Status: Acute Assessment and Plan: He has neuropathy, and this may be contributing to his excessive limb movements during sleep. He had increased periodic limb movements during sleep, worsened during the titration. During the baseline, her had a periodic limb movement index of 42.3, during the titration periodic limb movement index was 90.3.The PLM arousal index was low on both portions, 1.4 on baseline, 1.9 during the titration. His sleep questionnaire indicates that he constantly kicks during the night and always feels crawling or aching feelings in his legs. Ferritin level is indicated to exclude iron deficiency anemia as a contributing factor. Ferritin should be 75 ng/mL or greater. If ferritin is below this, iron supplementation should be given to achieve ferritin of 75 ng/mL. There are nonpharmacologic methods to treat limb movements including daily exercise, stretching calf muscles before bed, avoiding excessive amounts of caffeine and alcohol, vitamin B supplementation, magnesium lotion massaged into legs before bed, and use of a weighted blanket. Pharmacologic therapy is very effective for restless legs syndrome and limb movements during sleep and may include [id number] voltage-gated calcium channel ligands such as gabapentin which is preferable to dopaminergic agents which can have augmentation. Other treatments can include opioids and benzodiazepines. Data The data obtained during this sleep study is adequate for interpretation. Certification This sleep study has been reviewed by a board certified sleep medicine physician.
[2025-05-30 15:37] VITALS: BMI 37.8
== END 2025-04-20 06:20 | disposition home or self-care (01) ==
PROVIDERS: PCP Internal Medicine; Visit Provider Physician Assistant
DX: G47.10 Hypersomnia, unspecified (principal); G47.33 Obstructive sleep apnea (adult) (pediatric); G47.61 Periodic limb movement disorder
CPT/HCPCS: 95811

== ENCOUNTER 2025-04-30 16:09 | Outpatient (CLI) | payer OTHER, SELFPAY ==
--- NOTE | ~2025-04-30 | XR_ITS ---
Right foot Technique: AP and lateral views were obtained. Clinical History: Raised antibody titer Findings: No acute fracture or dislocation is seen. Osseous alignment is anatomic. Joint spaces are preserved without erosive or degenerative change. Soft tissues are unremarkable. Impression: Unremarkable right foot radiographs. Reviewed, dictated and finalized at [facility]. Impression: Unremarkable right foot radiographs.
--- NOTE | ~2025-04-30 | XR_ITS ---
Left Hand Technique: PA and lateral views were obtained. Clinical History: Raised antibody titer Findings: No acute fracture or dislocation is seen. Osseous alignment is anatomic. Joint spaces are preserved. Soft tissues are unremarkable. Impression: Unremarkable left hand. Reviewed, dictated and finalized at location M. Impression: Unremarkable left hand.
--- NOTE | ~2025-04-30 | XR_ITS ---
Right Hand Technique: PA and lateral views were obtained. Clinical History: Raised antibody titer Findings: No acute fracture or dislocation is seen. Osseous alignment is anatomic. Joint spaces are preserved. Soft tissues are unremarkable. Impression: Unremarkable right hand. Reviewed, dictated and finalized at location M. Impression: Unremarkable right hand.
--- NOTE | ~2025-04-30 | XR_ITS ---
Left foot Technique: AP and lateral views were obtained. Clinical History: Raised antibody titer Findings: No acute fracture or dislocation is seen. Osseous alignment is anatomic. Joint spaces are preserved without erosive or degenerative change. Soft tissues are unremarkable. Impression: Unremarkable left foot radiographs. Reviewed, dictated and finalized at location . Impression: Unremarkable left foot radiographs.
--- NOTE | ~2025-04-30 | XR_ITS ---
Cervical Spine: AP, lateral, open-mouth views Clinical History: Raised antibodies hilar Findings: The normal lordotic curve is maintained. The vertebral bodies and posterior elements appear intact. The intervertebral disc spaces are well maintained. Mild facet joint degenerative changes are present. No instability on flexion or extension. Pre-vertebral soft tissues are unremarkable. Impression: Mild facet arthropathy in the cervical spine. Reviewed, dictated and finalized at location . Impression: Mild facet arthropathy in the cervical spine.
--- NOTE | ~2025-04-30 | XR_ITS ---
EXAMINATION: XR chest 2V 04/30/2025 16:40 INDICATION: Raised antibody titers PROCEDURE: 2 view chest COMPARISON: Comparison to multiple prior studies sequentially, with oldest reviewed study dated 03/2013. FINDINGS: The lungs are clear. The cardiomediastinal silhouette is within normal limits. There are no pleural effusions. There is no pneumothorax suspected. IMPRESSION: 1: NO ACUTE CARDIOPULMONARY DISEASE. Reviewed, dictated and finalized at location A.
== END 2025-04-30 16:10 | disposition home or self-care (01) ==
PROVIDERS: PCP Internal Medicine; Visit Provider Internal Medicine
DX: I77.82 Antineutrophilic cytoplasmic antibody [ANCA] vasculitis (principal); R76.0 Raised antibody titer
CPT/HCPCS: 71046; 72050; 73120; 73620

== ENCOUNTER 2025-08-02 06:48 | Outpatient (CLI) | payer OTHER, SELFPAY ==
--- NOTE | ~2025-08-02 | MR_ITS ---
EXAM/PROCEDURE: MR lumbar spine wo con HISTORY: M54.17 - Radiculopathy, lumbosacral region COMPARISON: None available. TECHNIQUE: Standard technique for multiplanar lumbar spine MRI without contrast FINDINGS: Degenerative changes present throughout the lumbar spine and visualized thoracic spine involving disc spaces and uncovertebral joints. Slight fluid intense signal present in the posterior annulus at L5-S1. No other gross evidence of acute or aggressive bony or soft tissue process seen. The conus tapers normally at L2. Level specific findings as follows: T11-T12: Moderately severe posterior disc bulging and spondylosis with borderline spinal canal stenosis but no discrete disc protrusion. Moderate bilateral neural foraminal narrowing. T12-L1: Mild degenerative changes L1-2: Moderately severe posterior spondylosis and disc bulging with thickening of ligamentum flavum but no spinal canal stenosis or discrete disc herniation. Moderate bilateral neural foraminal narrowing. L2-3: Mild degenerative changes. L3-4: Mild degenerative changes L4-5: Moderately severe broad-based disc bulging, with mild degenerative changes in the posterior elements resulting in narrowing but not quite stenosis of the lateral recesses. No spinal canal stenosis or discrete disc protrusion. Moderately severe bilateral neural foraminal narrowing at this level. L5-S1: More severe hyperostosis of the facet joints and thickening of ligamentum flavum with mild bilateral lateral recess stenosis right worse than left. No discrete disc protrusion or spinal canal stenosis. Moderate to severe bilateral neural foraminal narrowing right worse than left. Possible small posterior annular tear. IMPRESSION: Multilevel degenerative changes with level specific findings as cataloged above. Possible small posterior annular tear at L5-S1. Reviewed, dictated and finalized at location A. [employer] IMPRESSION: Multilevel degenerative changes with level specific findings as cataloged above . Possible small posterior annular tear at L5-S1.
== END 2025-08-02 06:49 | disposition home or self-care (01) ==
LOC: MICIMG 06:49
PROVIDERS: PCP Internal Medicine
DX: M51.35 Other intervertebral disc degeneration, thoracolumbar region (principal); M47.816 Spondylosis without myelopathy or radiculopathy, lumbar region; M51.369 Other intervertebral disc degeneration, lumbar region without mention of lumbar back pain or lower extremity pain; M24.28 Disorder of ligament, vertebrae; M48.061 Spinal stenosis, lumbar region without neurogenic claudication; M99.74 Connective tissue and disc stenosis of intervertebral foramina of sacral region; R29.6 Repeated falls
CPT/HCPCS: 72148